=== PATIENT | male | born 1955 | race Caucasian/White ===

== ENCOUNTER 2017-07-23 10:05 | Inpatient (IN) | payer OTHER ==
[2017-07-23] MEDS ORDERED: ATORVASTATIN 80 MG TAB PO STA (10:13)
[2017-07-23] MEDS ORDERED: SODIUM CHLORIDE 0.9% 500 ML IV ONE (10:18)
[2017-07-23] MEDS ORDERED: fentaNYL (PF) 50 MCG/ML 2 ML AMP ONE (10:32)
[2017-07-23] MEDS ORDERED: fentaNYL (PF) 50 MCG/ML 2 ML AMP IV ONE (10:32)
[2017-07-23] MEDS ORDERED: LIDOCAINE 2% INJ 20 MG/ML SQ ONE (10:32)
--- NOTE | 2017-07-23 10:32 | ED ---
Chest Pain HPI - General Chief Complaint: Chest Pain Stated Complaint: Stemi Time Seen by Provider: 07/23/17 10:05 Source: patient, police, EMS, RN notes reviewed Mode of arrival: EMS Limitations: no limitations - History of Present Illness Initial Comments: This is a 61-year-old male with a benign past medical history but a family history of hypertension who is a nonsmoker with the onset this morning at about 745 of retrosternal chest pain it was about 7/10 severity. It persisted he did have plans radiation no sweats no nausea vomiting possibly some shortness of breath. He's had intermittent symptoms similar to this over the past several weeks with exertion and so showing. He states he had a complete cardiac workup about 10 years ago that was negative. He had no fevers chills cough phlegm production or other symptoms. EMS was called patient was given aspirin and nitroglycerin with very minimal resolution of the pain. EKGs done by paramedics revealed ST elevation in leads II, III, and F aVF with reciprocal ST depressions in aVL and some borderline depression in lead 1. He was transported to the hospital here a STEMI alert was called I did contact Dr. Voss patient was about 30 minutes out. The Order Picker was called and. Complaint: chest pain - Related Data Home Medications Medication Instructions Recorded Confirmed No Known Home Medications [No 07/23/17 07/23/17 Known Home Medications] Allergies Allergy/AdvReac Type Severity Reaction Status Date / Time No Known Allergies Allergy Verified 07/23/17 10:14 Review of Systems ROS Statement: Those systems with pertinent positive or pertinent negative responses have been documented in the HPI. ROS Other: All systems not noted in ROS Statement are negative. EKG Findings - EKG Results: EKG: interpreted by ERMD, sinus rhythm (EKG showed a sinus rhythm with a rate of 86 [place] interval 186 QRS duration 100 QT since QTC 322/[address] elevations in leads II, III, and F aVF with reciprocal ST depressions in aVL and leads [address] changes seen in leads V5 and the 6. The V5 V6 leads are somewhat change from the 1 presented by EMS.) Past Medical History Past Medical History: No Reported History History of Any Multi-Drug Resistant Organisms: None Reported Past Surgical History: No Surgical Hx Reported Past Psychological History: No Psychological Hx Reported Smoking Status: Never smoker General Exam - General Exam Comments Initial Comments: This is a well-developed well-nourished awake alert oriented 3 male Limitations: no limitations General appearance: alert, anxious Head exam: Present: atraumatic, normocephalic, normal inspection Eye exam: Present: normal appearance, PERRL, EOMI. Absent: scleral icterus, conjunctival injection, periorbital swelling ENT exam: Present: normal exam, mucous membranes moist Neck exam: Present: normal inspection. Absent: tenderness, meningismus, lymphadenopathy Respiratory exam: Present: normal lung sounds bilaterally. Absent: respiratory distress, wheezes, rales, rhonchi, stridor Cardiovascular Exam: Present: regular rate, normal rhythm, normal heart sounds. Absent: systolic murmur, diastolic murmur, rubs, gallop, clicks GI/Abdominal exam: Present: soft, normal bowel sounds. Absent: distended, tenderness, guarding, rebound, rigid Extremities exam: Present: normal inspection, full ROM, normal capillary refill. Absent: tenderness, pedal edema, joint swelling, calf tenderness Back exam: Present: normal inspection Neurological exam: Present: alert, oriented X3, CN II-XII intact Psychiatric exam: Present: normal affect, normal mood Skin exam: Present: warm, dry, intact, normal color. Absent: rash Course Vital Signs 07/23/17 10:06 Pulse Rate 89 Respiratory 18 Rate Blood Pressure 192/113 O2 Sat by Pulse 99 Oximetry Chest Pain MDM - MDM Dr. Voss arrived in the emergency department shortly after the patient arrived. He did examine the patient patient will be going to the Order P[facility] for cardiac catheterization. I did review the x-ray no acute findings. I did discuss the findings with the patient and with his was present. I also discussed the case with Dr. Peña who is on [facility] [place] [facility] call for medicine. The patient persists in having 6/10 chest pain this was after the aspirin nitroglycerin he was given morphine and route. Critical Care Time Critical Care Time: Yes Critical Care Time: 34 minutes of critical care time which includes monitoring the EMS run and discussed with paramedics prior to arrival history physical lab and x-ray orders on the patient several discussions with the patient has regarding findings discussed with paramedics. Discussion with Dr. Voss and with Dr. Peña. A shot of the above. Disposition Clinical Impression: ST elevation myocardial infarction (STEMI), Chest pain Disposition: ADMITTED IP TO THIS [facility] Condition: Serious Referrals: Davin Martinez MD [Primary Care Provider] - 1 Week
[2017-07-23] MEDS ORDERED: VERAPAMIL SYRINGE (5 MG/10 ML) INTRAARTER ONE (10:34)
--- NOTE | 2017-07-23 10:37 | XR ---
EXAMINATION TYPE: XR chest 1V portable DATE OF EXAM: 07/23/2017 HISTORY: Chest Pain. REFERENCE: NONE. FINDINGS: The heart is upper limits of normal in size. There is left basilar airspace disease. There is a left-sided effusion. Catheter tubing projects over the right chest. IMPRESSION: 1. CARDIOMEGALY. 2. LEFT BASILAR AIRSPACE DISEASE. 3. SMALL LEFT EFFUSION.
[2017-07-23] MEDS ORDERED: BIVALIRUDIN BOLUS 250 MG/50 ML IV ONE (10:38)
[2017-07-23] MEDS ORDERED: PRASUGREL 10 MG TAB ONE (10:39)
[2017-07-23] MEDS ORDERED: BIVALIRUDIN 250 MG in SODIUM CHLORIDE 0.9% 50 ML IV ONE (10:39)
[2017-07-23] MEDS ORDERED: PRASUGREL 10 MG TAB PO ONE (10:41)
[2017-07-23] MEDS ORDERED: SODIUM CHLORIDE 0.9% 1,000 ML IV SCH ×2 (10:45→11:30)
[2017-07-23] MEDS ORDERED: NITROGLYCERIN 1000MCG/10ML SYRINGE INTRACORON ONE (10:49)
[2017-07-23] MEDS ORDERED: IOHEXOL 350 MG/ML 125ML BOTTLE INJ ONE (11:06)
--- NOTE | 2017-07-23 11:09 | CONS ---
CONSULTATION Mr. Andujar is a 61-year-old male with no prior documented history of coronary artery disease who presented to the emergency room through EMS with an acute episode of chest discomfort that woke him up from sleep. The patient had evidence of acute inferior myocardial infarction. The patient is active physically, plays volleyball 3 times a week without associated symptoms. Denies any exertional chest pain. No tightness in the chest. No dizziness. No palpitation. No syncope. No PND, orthopnea, or peripheral edema. His coronary risk factors are negative for hypertension. He is nonsmoker, nondiabetic, and no documented hyperlipidemia. REVIEW OF SYSTEMS: RESPIRATORY SYSTEM: No recent wheezing. No cough. No history of documented obstructive lung disease. GI SYSTEM: No recent GI bleeding. No peptic ulcer disease. SYSTEM: No dysuria or hematuria. NERVOUS SYSTEM: No stroke or seizure. PHYSICAL EXAMINATION: A 61-year-old male, alert, oriented in no apparent distress. Blood pressure 130/70 with the heart rate in the 70s. HEAD: Normocephalic. EYES: Sclerae anicteric. NECK: Good carotid upstroke. No bruit. No jugular venous distention. LUNGS: Clear to auscultation. HEART: Regular rate and rhythm S1, S2. No S3. No rub. ABDOMEN: Soft, nontender. Positive bowel sounds. No organomegaly. EXTREMITIES: No edema. Intact distal pulses. EKG is consistent with sinus mechanism and ST-segment elevation consistent with an inferior wall myocardial infarction. IMPRESSION: Acute inferior myocardial infarction. RECOMMENDATION: I recommend proceeding with emergent cardiac catheterization to assess his status and guide his treatment. The rationale behind the procedure as well as risks and the complications were discussed with the patient who is in full understanding and agreement. Thank you for this consult. We will follow with you. MMODL / IJN: [id number] /
[2017-07-23 11:16] LABS: Basophils # (A) 0.1 k/uL (0-0.2); Basophils % (A) 1 %; Eosinophils # (A) 0.1 k/uL (0-0.7); Eosinophils % (A) 0 %; HCT 45.1 % (39.0-53.0); HGB 14.9 gm/dL (13.0-17.5); Lymphocytes # (A) 1.1 k/uL (1.0-4.8); Lymphocytes % (A) 10 %; MCH 29.6 pg (25.0-35.0); MCV 89.7 fL (80.0-100.0); Mean Platelet Volume 8.3; Monocytes # (A) 0.3 k/uL (0-1.0); Monocytes % (A) 3 %; Neutrophils % (A) 86 %; Platelet Count 258 k/uL (150-450); RBC 5.03 m/uL (4.30-5.90); RDW 13.9 % (11.5-15.5); WBC 11.6 k/uL (3.8-10.6)
[2017-07-23] MEDS ORDERED: ZOLPIDEM 5 MG TAB PO PRN (11:27)
[2017-07-23] MEDS ORDERED: MAG HYDROX/AL HYDROX/SIMETH 30 ML CUP PO PRN (11:27)
[2017-07-23] MEDS ORDERED: NITROGLYCERIN SL TABS 0.4 MG TAB SUBLINGUAL PRN (11:27)
[2017-07-23] MEDS ORDERED: RX INFO: IV CONTRAST WAS GIVEN 1 EACH MISC MISCELLANE PRN (11:27)
[2017-07-23] MEDS ORDERED: ATROPINE SULFATE 0.1 MG/ML 10ML SYRINGE IV PRN (11:27)
[2017-07-23 11:29] LABS: ALT 74 U/L (21-72); AST 121 U/L (17-59); Albumin 3.7 g/dL (3.5-5.0); Alkaline Phosphatase 84 U/L (38-126); Anion Gap 9 mmol/L; Blood Urea Nitrogen 15 mg/dL (9-20); Calcium 8.7 mg/dL (8.4-10.2); Carbon Dioxide 23 mmol/L (22-30); Chloride 104 mmol/L (98-107); Glucose 143 mg/dL (74-99); Magnesium 2.1 mg/dL (1.6-2.3); Potassium 4.7 mmol/L (3.5-5.1); Sodium 136 mmol/L (137-145); Total Bilirubin 0.6 mg/dL (0.2-1.3); Total Protein 6.4 g/dL (6.3-8.2)
[2017-07-23 11:41] LABS: INR 3.9 (<1.2); Partial Thromboplastin Time 77.7 sec (22.0-30.0); Prothrombin Time 34.6 sec (9.0-12.0)
[2017-07-23 11:50] LABS: Glucose,Whole Blood 116 mg/dL (75-99)
[2017-07-23 12:04] LABS: Creatine Kinase MB 42.7 ng/mL (0.0-2.4); Troponin I 8.37 ng/mL (0.000-0.034)
[2017-07-23 12:25] VITALS: BMI 25.1
--- NOTE | 2017-07-23 13:03 | CC ---
CARDIAC CATHETERIZATION REPORT Mr. Andujar is a 61-year-old male with no significant cardiac disease who presented to the emergency room with an acute episode of chest discomfort with ST-segment elevation inferiorly. In view of that, recommendation was made regarding cardiac catheterization. The procedure as well as the risks and complications were discussed with the patient who is in full understanding and agreement. PROCEDURE: Patient was brought to the laboratory sample carrier in a fasting semi-sedated state after receiving fentanyl and Benadryl and achieving moderate conscious sedated state. Using Xylocaine anesthesia in the Seldinger technique, a 6-Croatian sheath was introduced in the right radial artery. Selective right and left coronary angiography performed using 6-Croatian FR4 guiding catheter and a 5-Croatian 3.5 bend left Edgardo catheter. After obtaining images of the right coronary artery and performing angioplasty and stenting, images of the left coronary system was performed. Following that 5-Croatian tight pigtail catheter was left ventricle and a 30-degree WEEMS view of the left ventricle was obtained. Following that, the catheter and sheaths were removed. Hemostasis was obtained with deployment of a TR band. There was no immediate complication. Patient is returned to his room in stable condition. There was no immediate complication. FINDINGS: LEFT MAIN: This is a short size vessel bifurcating in left circumflex and left anterior descending artery. Left main coronary artery is without any significant obstructive disease. LEFT ANTERIOR DESCENDING ARTERY: This is a large-sized vessel reaching to the apex giving rise to 3 diagonal branches. The first one is very proximal. The second one is small in caliber, but has diffuse intimal disease proximally up to 70%. After the takeoff of that diagonal branch, there is a plaque in the LAD of 50% to 60%. Beyond that, there is no high-grade stenosis except at the distal apical segment when there is an area of stenosis of about 70%. LEFT CIRCUMFLEX: This is a nondominant vessel giving rise to a large obtuse marginal branch. In the proximal segment of the left circumflex, there is a plaque with area of stenosis up to 70%. The rest of the vessel has no high-grade stenosis. RIGHT CORONARY ARTERY: This is a dominant vessel, tortuous in mid segment and has a plaque of about 30% to 40%. After the takeoff of the acute marginal branch, the vessel is totally occluded with no antegrade flow. LEFT VENTRICULOGRAM: Left ventriculogram is performed in 30-degree WEEMS view and revealed mid inferior wall hypokinesis with ejection fraction of 45% to 50%. There was no significant mitral regurgitation. HEMODYNAMICS: There was no gradient across the aortic valve. The left ventricle end- diastolic pressure was 24 mmHg. CONCLUSION: 1. Acutely occluded mid right coronary artery. 2. Significant disease in the proximal left circumflex and moderate significant disease in the mid left anterior descending artery. 3. Mildly impaired left ventricular systolic function. RECOMMENDATION: The patient will undergo angioplasty and stenting of the right coronary artery and subsequently be evaluated for the need to undergo revascularization of his LAD and left circumflex. Those findings and recommendation were discussed with the patient who is in full understanding and agreement. MMODL / IJN: [id number] /
--- NOTE | 2017-07-23 13:09 | PTCA ---
PERCUTANEOUSTRANS CORORONARY ANGIOGRAPHY Mr. Andujar is a 61-year-old male with no significant coronary risk factors who presented to the hospital with an acute inferior myocardial infarction, underwent cardiac catheterization, was found to have a totally occluded mid right coronary artery. In view of that, recommendation was made regarding angioplasty and stenting. The procedure as well as the risks and complications were discussed with the patient who is in full understanding and agreement. PROCEDURE: Using the 6-[place] Zealander FR4 guiding catheter and after obtaining images of the right coronary artery, 0.014 balanced medium weight J-wire was advanced across the lesion, positioned distally. Then a 2.5 x 12 mm Trek balloon was advanced and 2 inflations maximum of 8 atmospheres were done. Following that, the balloon was removed and a 2.75 x 18 mm Xience Alpine stent was deployed postdilated at 14 atmospheres. After removing the balloon, a 2.75 x 12 mm Xience Alpine stent was deployed proximal to the first one and postdilated to 16 atmospheres. After the last images after appropriate wait, the balloon and the guidewire were withdrawn back in the guiding catheter. Images were obtained, repeated. Those images reveal stable successful stenting. At that point, the guiding catheter, the balloon and the guidewire were removed. Subsequently, images of the left coronary system and left ventriculogram was performed. Following the catheter and sheaths were removed. Hemostasis was obtained with deployment of a TR band. There was no immediate complication. Patient is returned to his room in stable condition. Of note, the patient received Angiomax per protocol as well as oral loading doses of Effient. He received intra-arterial verapamil. His chest discomfort resolved and his EKG changes improved. RESULTS: Successful stenting of the mid right coronary artery with reduction of stenosis from 100% to 0%. RECOMMENDATION: The patient will be continued on aspirin, Effient, beta verna, NIEVES inhibitor and statin. The importance of dual antiplatelet treatment were discussed with the patient and his family and are in full understanding and agreement. The patient will require re-evaluation regarding the need to undergo revascularization of his left coronary system. Duration of procedure: 39 minutes. MMODL / IJN: [id number] /
--- NOTE | 2017-07-23 13:24 | HP ---
CONSULTATION SUBJECTIVE: A 61-year-old white male who is status post STEMI, status post PTCA of the right coronary artery x2 up in ICU after a STEMI watching him on the monitor. We placed him on Lipitor 80 mg daily, Lopressor 25 b.i.d., Zestril 5 mg b.i.d., aspirin 81 mg daily, Effient 10 mg daily. He is having no chest pain, shortness of breath, talking normally postop. Home medicines are none. FAMILY HISTORY: Dad had a stroke x3 in his 80s. SURGICAL HISTORY: As mentioned, he status post PTCA, otherwise negative. PAST MEDICAL HISTORY: Negative. He is on no medications. He has never smoked, does drink alcohol. PHYSICAL EXAMINATION: A white male, he is within normal limits, talking normally. No complaints. CARDIOVASCULAR: S1, S2. LUNGS: Clear. GI: Soft. HEMATOLOGY: Negative Homans. PSYCH: Fair mood and affect. OPHTHALMOLOGIC: Pupils equal, round, react to light and accommodation. NEUROLOGIC: Alert and oriented x3. PSYCH: Fair mood and affect. VASCULAR: Normal dorsalis pedis, posterior tibial and radial pulse. Blood pressure currently is 150/90, down from admission. Pulse is in 80s. Respiratory rate 18. ASSESSMENT: 1. Status post PTCA. 2. ST-elevation myocardial infarction. He will be on medications as mentioned above. Possible discharge in next 2 to 3 days. Monitor on the monitor. Status post STEMI, status post stent placement. MMODL / IJN: [id number] /
[2017-07-23] MEDS: METOPROLOL TARTRATE 25 MG TAB PO SCH ×2 (13:46→20:13)
[2017-07-23] MEDS ORDERED: HYDROmorphone 0.5 MG/0.5 ML SYRINGE IVP STA (15:02)
[2017-07-23] MEDS ORDERED: LISINOPRIL 5 MG TAB PO STA (15:02)
[2017-07-23] MEDS: FAMOTIDINE 20 MG TAB PO SCH (18:26)
[2017-07-23 18:45] LABS: Hemoglobin A1C 5.8 % (4.0-6.0)
[2017-07-23 18:52] LABS: Troponin I 96.4 ng/mL (0.000-0.034)
[2017-07-23] MEDS: LISINOPRIL 5 MG TAB PO SCH (20:13)
[2017-07-24 00:42] LABS: Creatine Kinase MB 86.2 ng/mL (0.0-2.4)
[2017-07-24 01:21] LABS: Troponin I 86.3 ng/mL (0.000-0.034)
[2017-07-24] MEDS: NITROGLYCERIN SL TABS 0.4 MG TAB SUBLINGUAL PRN ×3 (04:05→04:22)
[2017-07-24 04:46] LABS: Basophils # (A) 0.1 k/uL (0-0.2); Basophils % (A) 0 %; Eosinophils # (A) 0.1 k/uL (0-0.7); Eosinophils % (A) 1 %; HCT 44.3 % (39.0-53.0); HGB 14.7 gm/dL (13.0-17.5); Lymphocytes % (A) 16 %; MCH 30.1 pg (25.0-35.0); MCHC 33.2 g/dL (31.0-37.0); MCV 90.8 fL (80.0-100.0); Mean Platelet Volume 8.4; Monocytes # (A) 0.6 k/uL (0-1.0); Monocytes % (A) 5 %; Neutrophils # (A) 9.4 k/uL (1.3-7.7); Neutrophils % (A) 77 %; Platelet Count 274 k/uL (150-450); RBC 4.88 m/uL (4.30-5.90); RDW 14.4 % (11.5-15.5); WBC 12.3 k/uL (3.8-10.6)
[2017-07-24 04:57] LABS: ALT 96 U/L (21-72); AST 243 U/L (17-59); Albumin 3.6 g/dL (3.5-5.0); Alkaline Phosphatase 72 U/L (38-126); Anion Gap 8 mmol/L; Blood Urea Nitrogen 13 mg/dL (9-20); Calcium 9.2 mg/dL (8.4-10.2); Carbon Dioxide 25 mmol/L (22-30); Chloride 101 mmol/L (98-107); Cholesterol 98 mg/dL (<200); Glucose 127 mg/dL (74-99); HDL Cholesterol 35 mg/dL (40-60); LDL Cholesterol,Calculated 49 mg/dL (0-99); Potassium 4.5 mmol/L (3.5-5.1); Sodium 134 mmol/L (137-145); Total Bilirubin 1.1 mg/dL (0.2-1.3); Triglycerides 72 mg/dL (<150)
[2017-07-24] MEDS ORDERED: MORPHINE SULFATE 2 MG/ML SYRINGE IVP PRN ×2 (08:02)
[2017-07-24] MEDS: FAMOTIDINE 20 MG TAB PO SCH (08:30)
[2017-07-24] MEDS: ASPIRIN 81 MG PO SCH (08:30)
[2017-07-24] MEDS: LISINOPRIL 5 MG TAB PO SCH ×2 (08:31→20:25)
[2017-07-24] MEDS: METOPROLOL TARTRATE 25 MG TAB PO SCH ×2 (08:31→20:25)
[2017-07-24] MEDS: PRASUGREL 10 MG TAB PO SCH (08:31)
--- NOTE | 2017-07-24 08:52 | PN ---
PROGRESS NOTE Mr. Andujar is a 61-year-old male who presents with an acute inferior myocardial infarction underwent percutaneous revascularization of his right coronary artery. He is doing well this morning. His breathing has been stable. He denies any symptoms of chest pain. He denies any dizziness or palpitations. He has had some discomfort in the chest respirophasic but no symptoms similar to what he had on presentation. He continues to be at this time on aspirin once a day, Lipitor 80 mg daily, lisinopril 5 mg twice a day, metoprolol tartrate 25 mg twice a day, and Effient 10 mg daily. PHYSICAL EXAMINATION: Blood pressure 111/60 with a heart rate in the 60s. LUNGS: Clear. Regular rhythm S1, S2. No S3. No rub. ABDOMEN: Soft, nontender. EXTREMITIES: No edema. Right radial pulse is intact. LAB DATA: BUN and creatinine 13 and 1.0, hemoglobin 14.7. His peak troponin is 96. EKG is consistent with inferior myocardial infarction. IMPRESSION: 1. Status post acute myocardial infarction with stenting of the right coronary artery. 2. Significant disease in the left circumflex with moderate to significant disease in the LAD. RECOMMENDATION: The plan is to transfer him today to telemetry floor. Increase physical activity. I reviewed the results of his echocardiogram. Depending on his progress, further recommendations will be made regarding the timing to proceed with percutaneous revascularization of his left circumflex and reevaluation of his LAD. MANFRED / TEN: [id number] /
[2017-07-24] MEDS ORDERED: ASPIRIN 325 MG TAB PO SCH (09:00)
--- NOTE | 2017-07-24 18:49 | PN ---
PROGRESS NOTE SUBJECTIVE: 61-year-old male with acute inferior myocardial infarction, underwent PTCA of the right coronary artery, is doing well. Is breathing good. Low HDL was discussed with him and natural treatments for it. Blood pressure is 110s over 60s, heart rate in the 60s. Lungs are clear. Abdomen is soft. Psych: Fair mood and affect. Creatinine 1.0. Hemoglobin is 14.7. Troponin 0.96. EKG, inferior IN, status post inferior IN, stenting of the right coronary artery, significant disease left circumflex, moderate to significant disease in LAD. Possibly more PTCAs depending on patient's improvement will be done. Please see further orders. ICU 20 minutes. MMODL / IJN: [id number] /
[2017-07-24] MEDS: ATORVASTATIN 80 MG TAB PO SCH (20:25)
[2017-07-25 06:25] LABS: ALT 76 U/L (21-72); AST 126 U/L (17-59); Albumin 3.7 g/dL (3.5-5.0); Alkaline Phosphatase 74 U/L (38-126); Anion Gap 8 mmol/L; Blood Urea Nitrogen 18 mg/dL (9-20); Calcium 9.6 mg/dL (8.4-10.2); Carbon Dioxide 27 mmol/L (22-30); Chloride 106 mmol/L (98-107); Glucose 110 mg/dL (74-99); Potassium 4.6 mmol/L (3.5-5.1); Sodium 141 mmol/L (137-145); Total Protein 6.2 g/dL (6.3-8.2)
[2017-07-25] MEDS: FAMOTIDINE 20 MG TAB PO SCH (08:29)
[2017-07-25] MEDS: PRASUGREL 10 MG TAB PO SCH (08:29)
[2017-07-25] MEDS: LISINOPRIL 5 MG TAB PO SCH ×2 (08:29→22:10)
[2017-07-25] MEDS: METOPROLOL TARTRATE 25 MG TAB PO SCH ×2 (08:30→22:10)
[2017-07-25] MEDS: ASPIRIN 81 MG PO SCH (08:30)
[2017-07-25] MEDS ORDERED: ALPRAZolam 0.5 MG TAB PO PRN (09:49)
[2017-07-25] MEDS ORDERED: ASPIRIN 325 MG TAB PO STA (09:49)
[2017-07-25] MEDS ORDERED: ALPRAZolam 0.25 MG TAB PO PRN (09:49)
[2017-07-25] MEDS ORDERED: ATORVASTATIN 80 MG TAB PO STA (09:49)
[2017-07-25] MEDS ORDERED: SODIUM CHLORIDE 0.9% 1,000 ML in EMPTY BAG 1 BAG IV ONE (09:49)
[2017-07-25] MEDS ORDERED: NITROGLYCERIN SL TABS 0.4 MG TAB SUBLINGUAL PRN (09:49)
--- NOTE | 2017-07-25 09:52 | ECHOF ---
Referral Reason:la MEASUREMENTS -------- HEIGHT: 180.3 cm WEIGHT: 83.5 kg BP: 104/60 RVIDd: 3.3 cm (< 3.3) IVSd: 1.5 cm (0.6 - 1.1) LVIDd: 3.1 cm (3.9 - 5.3) LVPWd: 1.3 cm (0.6 - 1.1) IVSs: 1.8 cm LVIDs: 2.4 cm LVPWs: 1.8 cm LA Diam: 2.7 cm (2.7 - 3.8) LAESV Index (A-L): 13.96 ml/m Ao Diam: 3.2 cm (2.0 - 3.7) AV Cusp: 2.3 cm (1.5 - 2.6) MV EXCURSION: 18.894 mm (> 18.000) MV EF SLOPE: 147 mm/s (70 - 150) EPSS: 0.2 cm MV E Martin: 0.84 m/s MV DecT: 214 ms MV A Martin: 0.93 m/s MV E/A Ratio: 0.90 FINDINGS -------- Sinus rhythm. This was a technically good study. The left ventricular size is normal. There is moderate concentric left ventricular hypertrophy. O verall left ventricular systolic function is mildly impaired with, an EF between 45 - 50 %. Basal i nferior LV wall motion is hypokinetic. Basal inferoseptal LV wall motion is hypokinetic. The right ventricle is mildly enlarged. The right ventricular systolic function is moderately impai red. Normal LA size by volume 22+/-6 ml/m2. The right atrium is normal in size. The aortic valve is trileaflet and appears structurally normal. There is trace mitral regurgitation. The tricuspid valve appears structurally normal. There is no pulmonic regurgitation present. The aortic root size is normal. IVC Not well visulized. There is no pericardial effusion. CONCLUSIONS -------- 1. Sinus rhythm. 2. This was a technically good study. 3. The left ventricular size is normal. 4. There is moderate concentric left ventricular hypertrophy. 5. Overall left ventricular systolic function is mildly impaired with, an EF between 45 - 50 %. 6. Basal inferior LV wall motion is hypokinetic. 7. Basal inferoseptal LV wall motion is hypokinetic. 8. The right ventricle is mildly enlarged. 9. The right ventricular systolic function is moderately impaired. 10. Normal LA size by volume 22+/-6 ml/m2. 11. The right atrium is normal in size. 12. The aortic valve is trileaflet and appears structurally normal. 13. There is trace mitral regurgitation. 14. The tricuspid valve appears structurally normal. 15. There is no pulmonic regurgitation present. 16. The aortic root size is normal. 17. IVC Not well visulized. 18. There is no pericardial effusion. RV TECHNICIAN: Jeni Saldana RDCS
--- NOTE | 2017-07-25 10:29 | PN ---
PROGRESS NOTE Mr. Andujar is a 61-year-old male who presented with an acute myocardial infarction in the right coronary artery, underwent stenting of his right coronary artery. He was found to have significant obstructive disease in the circumflex and moderate significant disease in the LAD. He is doing well this morning. He denies symptoms of chest pain. His breathing seems to be stable. He denies any dizziness or palpitation. No nausea. No vomiting. No cough. No fever. He continued be on aspirin once a day, Lipitor 80 mg daily, lisinopril 5 mg twice a day, metoprolol tartrate 25 mg twice a day, and Effient 10 mg daily. PHYSICAL EXAMINATION: Blood pressure 104/60 with the heart rate in 70s. LUNGS: Clear. HEART: Regular rate and rhythm. S1, S2. No S3. No rub. ABDOMEN: Soft, nontender. EXTREMITIES: No edema. LAB DATA: Lab data revealed BUN and creatinine of 18 and 1.2. Potassium 4.6. His AST is 126, ALT is 76. IMPRESSION: 1. Status post inferior wall myocardial infarction with stenting. 2. Disease in the left anterior descending artery and the right coronary artery. 3. Hyperlipidemia. RECOMMENDATION: Patient will be transferred to telemetry floor. He will proceed with percutaneous revascularization of his left circumflex and re-evaluation of the LAD on Tuesday. Depending on his progress, further recommendation will be made. MMODL / IJN: [id number] /
[2017-07-25 18:54] LABS: Hepatitis A Antibody IgM Non-Reactive (Non-Reactive); Hepatitis B Core IgM Non-Reactive (Non-Reactive)
[2017-07-25] MEDS: ATORVASTATIN 80 MG TAB PO SCH (22:10)
--- NOTE | 2017-07-25 23:23 | PN ---
PROGRESS NOTE SUBJECTIVE: 61-year-old white male, status post myocardial infarction ejection fraction 45-50%. He is scheduled to have right catheterization of the LAD and right circumflex on Tuesday. Remains on aspirin, Lipitor, lisinopril, metoprolol, Effient. Blood pressure low 100s over 60s, heart rate in the 70s. Lungs are clear. Heart S1, S2. No murmurs, rubs or gallops. Abdomen is soft, nontender. EXTREMITIES: No cyanosis, clubbing, edema. BUN of 18, creatinine 1.2, potassium 4.6. AST is 126, ALT 76. ASSESSMENT: 1. Status post inferior myocardial infarction with stenting of LAD and right coronary artery free stent. 2. Coronary artery disease. 3. Dyslipidemia with low HDL. Risk factor modification. Continue current treatment. Heart catheterization in 1-2 days. MMODL / IJN: [id number] /
[2017-07-26] MEDS: LISINOPRIL 5 MG TAB PO SCH ×2 (08:02→21:52)
[2017-07-26] MEDS: ASPIRIN 81 MG PO SCH (08:02)
[2017-07-26] MEDS: PRASUGREL 10 MG TAB PO SCH (08:02)
[2017-07-26] MEDS: METOPROLOL TARTRATE 25 MG TAB PO SCH ×2 (08:03→21:51)
[2017-07-26] MEDS: FAMOTIDINE 20 MG TAB PO SCH (08:03)
[2017-07-26] MEDS: ACETAMINOPHEN TAB 325 MG TAB PO PRN (10:17)
--- NOTE | 2017-07-26 12:51 | PN ---
PROGRESS NOTE Mr. Andujar is a 61-year-old male who presented with an acute myocardial infarction, underwent stenting of the right coronary artery, was found to have significant disease involving the circumflex and moderate significant disease in the LAD. He is doing well this morning. Ambulating without any difficulty. Denying any symptoms of chest pain. No dizziness. No palpitation. He continued on aspirin once a day, Lipitor 80 mg daily, lisinopril 5 mg twice a day, metoprolol tartrate 25 mg twice a day, and Effient 10 mg daily. PHYSICAL EXAMINATION: Blood pressure 115/60 with a heart rate in the 70s. LUNGS: Clear. HEART: Regular rate and rhythm. S1, S2. No S3. No rub. ABDOMEN: Soft, nontender. EXTREMITIES: No edema. LAB DATA: Revealed BUN and creatinine of 18 and 1.2. IMPRESSION: 1. Status post inferior myocardial infarction with stenting of the right coronary artery. 2. Significant disease involving the left circumflex and moderate significant disease in the left anterior descending artery. RECOMMENDATION: Patient will undergo percutaneous revascularization left circumflex tomorrow and re- evaluation of his LAD. In the meantime, will continue on the present medical regimen. MMODL / IJN: [id number] /
[2017-07-26] MEDS: ATORVASTATIN 80 MG TAB PO SCH (21:51)
[2017-07-27] MEDS ORDERED: SODIUM CHLORIDE 0.9% 1,000 ML in EMPTY BAG 1 BAG IV ONE (05:00)
[2017-07-27 06:17] LABS: Basophils # (A) 0.1 k/uL (0-0.2); Basophils % (A) 1 %; Eosinophils # (A) 0.2 k/uL (0-0.7); Eosinophils % (A) 3 %; HCT 45.1 % (39.0-53.0); HGB 14.7 gm/dL (13.0-17.5); Lymphocytes # (A) 2.3 k/uL (1.0-4.8); Lymphocytes % (A) 31 %; MCH 29.4 pg (25.0-35.0); MCHC 32.6 g/dL (31.0-37.0); MCV 90.3 fL (80.0-100.0); Mean Platelet Volume 8.9; Monocytes # (A) 0.5 k/uL (0-1.0); Monocytes % (A) 7 %; Neutrophils # (A) 4.2 k/uL (1.3-7.7); Neutrophils % (A) 56 %; Platelet Count 274 k/uL (150-450); RDW 13.9 % (11.5-15.5); WBC 7.5 k/uL (3.8-10.6)
[2017-07-27] MEDS ORDERED: ASPIRIN 325 MG TAB PO STA (06:29)
[2017-07-27] MEDS: ASPIRIN 81 MG PO SCH (06:29)
[2017-07-27] MEDS: PRASUGREL 10 MG TAB PO SCH (06:30)
[2017-07-27] MEDS: METOPROLOL TARTRATE 25 MG TAB PO SCH ×2 (06:30→21:07)
[2017-07-27] MEDS: FAMOTIDINE 20 MG TAB PO SCH (06:30)
[2017-07-27 06:33] LABS: Anion Gap 10 mmol/L; Blood Urea Nitrogen 18 mg/dL (9-20); Calcium 9.4 mg/dL (8.4-10.2); Carbon Dioxide 25 mmol/L (22-30); Chloride 105 mmol/L (98-107); Glucose 119 mg/dL (74-99); Potassium 4.6 mmol/L (3.5-5.1); Sodium 140 mmol/L (137-145)
[2017-07-27] MEDS ORDERED: LIDOCAINE 2% INJ 20 MG/ML (20 ML MDV) ONE (09:54)
[2017-07-27] MEDS ORDERED: diphenhydrAMINE 50 MG/ML 1 ML VIAL ONE (10:21)
[2017-07-27] MEDS ORDERED: fentaNYL (PF) 50 MCG/ML 2 ML AMP ONE (10:21)
[2017-07-27] MEDS ORDERED: fentaNYL (PF) 50 MCG/ML 2 ML AMP IV ONE (10:40)
[2017-07-27] MEDS ORDERED: diphenhydrAMINE 50 MG/ML 1 ML VIAL IVP ONE (10:40)
[2017-07-27] MEDS ORDERED: IV FLUID CONTINUATION 150 ML IV ONE (10:40)
[2017-07-27] MEDS ORDERED: LIDOCAINE 2% INJ 20 MG/ML SQ ONE (10:43)
[2017-07-27] MEDS ORDERED: BIVALIRUDIN 250 MG in SODIUM CHLORIDE 0.9% 35 ML IV ONE (10:48)
[2017-07-27] MEDS ORDERED: BIVALIRUDIN BOLUS 250 MG/50 ML IV ONE (10:49)
[2017-07-27] MEDS: NITROGLYCERIN 1000MCG/10ML SYRINGE INTRACORON ONE ×2 (10:50→10:58)
[2017-07-27] MEDS ORDERED: IOHEXOL 350 MG/ML 125ML BOTTLE INJ ONE (11:17)
[2017-07-27] MEDS ORDERED: RX INFO: IV CONTRAST WAS GIVEN 1 EACH MISC MISCELLANE PRN (11:29)
[2017-07-27] MEDS ORDERED: ZOLPIDEM 5 MG TAB PO PRN (11:29)
[2017-07-27] MEDS ORDERED: ATROPINE SULFATE 0.1 MG/ML 10ML SYRINGE IV PRN (11:29)
[2017-07-27] MEDS ORDERED: NITROGLYCERIN SL TABS 0.4 MG TAB SUBLINGUAL PRN (11:29)
[2017-07-27] MEDS ORDERED: MAG HYDROX/AL HYDROX/SIMETH 30 ML CUP PO PRN (11:29)
[2017-07-27] MEDS ORDERED: SODIUM CHLORIDE 0.9% 1,000 ML IV SCH (11:30)
[2017-07-27] MEDS: LISINOPRIL 5 MG TAB PO SCH ×2 (11:57→21:07)
--- NOTE | 2017-07-27 12:13 | AS ---
ARTERIAL STUDY Mr. Andujar is a 61-year-old male with no prior documented coronary artery disease who presented to the hospital on July 23 with an acute inferior myocardial infarction, underwent stenting of his right coronary artery. At that time was found to have significant disease involving the LAD and the left circumflex. In view of that, recommendation again were made regarding a staged angioplasty and stenting. The procedures, risks and complication were discussed with the patient who is in full understanding and agreement. PROCEDURE: Patient was brought to [facility] in a fasting semi-sedated state after receiving fentanyl and Benadryl and achieving moderate conscious sedated state. Using Xylocaine anesthesia and Seldinger technique, a 6-Djiboutian sheath was introduced in the right femoral artery. Selective left coronary angiography performed using 6-Djiboutian FL4 guiding catheter and after cannulating the left main, a 0.014 advanced medium weight J- wire was advanced across the lesion. Then a 3.0 x 18 mm Xience Alpine stent was deployed, postdilated at 14 atmospheres. Following that, and after appropriate wait, the balloon and the guidewire were withdrawn back in the guiding catheter. Images were obtained and repeated. Those images reveal stable successful stenting. At that point, the guidewire was withdrawn and advanced into the left circumflex obtuse marginal branch. Attempts to advance a 2.5 x 15 mm Xience Alpine stent were unsuccessful. At that point, the stent was removed and another 0.014 Advanced medium weight J-wire was advanced next to the first one and positioned distally in a gloria fashion. Subsequently, a 2.5 x 12 mm Trek balloon was advanced and one inflation at 10 atmospheres was. Following that, the balloon was removed and a 2.5 x 15 mm Xience Alpine stent was deployed, postdilated at 14 atmospheres. After the last inflation, after appropriate wait, the balloon and the guidewire were withdrawn back in the guiding catheter. Images were obtained and repeated. Those images reveal stable successful stenting. At that point, the guiding catheter, the balloon and guidewire were removed. The sheath was removed. Hemostasis was obtained with deployment of an Angio-Seal. There was no immediate complication. The patient was returned to his room in stable condition. Of note, the patient received Angiomax per protocol. He had no significant chest pain or EKG changes with the inflations. RESULTS: 1. Successful stenting of the proximal LAD with reduction of stenosis from 70% to 0%. 2. Successful stenting of the proximal left circumflex with reduction of stenosis from 90% to 0%. RECOMMENDATION: Patient will be continued on aspirin, Effient, beta blockers symptoms, and statin. The importance of dual antiplatelet treatment was discussed with the patient and his family who are in full understanding and agreement. Duration of the procedure is 33 minutes. MANFRED / TEN: [id number] /
[2017-07-27] MEDS: ACETAMINOPHEN TAB 325 MG TAB PO PRN (15:51)
[2017-07-27] MEDS ORDERED: PANTOPRAZOLE 40 MG TABLET PO STA (21:05)
[2017-07-27] MEDS: ATORVASTATIN 80 MG TAB PO SCH (21:07)
--- NOTE | 2017-07-27 22:31 | PN ---
PROGRESS NOTE SUBJECTIVE: [id number] white male, status post PTCA x2 today, of the LAD and the right circumflex, status post prior PTCA 2 or 3 days prior. He is having no chest pain or shortness of breath. Vital signs are stable. His is here discussed low cholesterol with her, low HDL and dietary changes. CARDIOVASCULAR: S1, S2. Lungs are clear. PSYCH: Fair mood and affect. ASSESSMENT: 1. Status post PTCA STEMI, coronary artery disease. 2. Hypertension. 3. Dyslipidemia. Home medicines were reviewed with the patient. Possible discharge home in the next 24 to 48 hours if cleared by Cardiology. MMODL / IJN: [id number] /
[2017-07-28 06:27] LABS: Anion Gap 9 mmol/L; Blood Urea Nitrogen 17 mg/dL (9-20); Calcium 9.3 mg/dL (8.4-10.2); Carbon Dioxide 27 mmol/L (22-30); Chloride 104 mmol/L (98-107); Glucose 107 mg/dL (74-99); Potassium 4.7 mmol/L (3.5-5.1); Sodium 140 mmol/L (137-145)
[2017-07-28] MEDS: METOPROLOL TARTRATE 25 MG TAB PO SCH (08:05)
[2017-07-28] MEDS: PRASUGREL 10 MG TAB PO SCH (08:05)
[2017-07-28] MEDS: LISINOPRIL 5 MG TAB PO SCH (08:06)
[2017-07-28] MEDS: ASPIRIN 81 MG PO SCH (08:06)
[2017-07-28] MEDS: FAMOTIDINE 20 MG TAB PO SCH (08:06)
[2017-07-28 08:12] VITALS: RESP 18; TEMP 97.6
--- NOTE | 2017-07-28 08:29 | PN ---
PROGRESS NOTE Mr. Andujar is a 61-year-old male who presented with an acute myocardial infarction and underwent stenting of the right coronary artery. On the weekend, he was found to have significant disease in the LAD and the right coronary artery and underwent elective angioplasty of the LAD and left circumflex yesterday. He is doing well this morning. His breathing has been stable. He denies any dizziness palpitation. He denies any nausea. He continues to be on aspirin once a day, Lipitor 80 mg daily, lisinopril 5 mg twice a day, metoprolol tartrate 25 mg twice a day, Effient 10 mg daily. PHYSICAL EXAMINATION: Blood pressure 109/60 with the heart rate in the 60s. LUNGS: Clear. HEART: Regular rate and rhythm, S1, S2. No S3. No rub. ABDOMEN: Soft, nontender. EXTREMITIES: No edema. Right groin, no hematoma. LAB DATA: BUN and creatinine 17 and 1.2. Potassium 4.7. EKG revealed no acute changes. IMPRESSION: 1. Status post stenting of the left anterior descending artery and left circumflex. 2. Status post inferior myocardial infarction and stenting of the right coronary artery. 3. Hyperlipidemia. RECOMMENDATION: Patient should be able to be discharged home today and followed as an outpatient. MMODL / IJN: [id number] /
[2017-07-28 13:49] VITALS: BP 118/63; PULSE 64
--- NOTE | 2017-08-29 00:57 | DS ---
DISCHARGE SUMMARY DISCHARGE MEDICATIONS: 1. Aspirin 81 mg daily. 2. Lipitor 80 mg daily. 3. Zestril 5 mg b.i.d. 4. Lopressor 25 mg b.i.d. 5. Nitroglycerin sublingual p.r.n. 6. Effient 10 mg daily. HISTORY: The patient was admitted secondary to acute myocardial infarction. Underwent stenting of the right coronary artery. He was found to have significant disease of the LAD and right coronary. Underwent more angioplasty of the LAD and left circumflex. Also, was doing well. He was stabilized from a cardiac standpoint. Follow up as an outpatient. DISCHARGE DIAGNOSES: 1. Coronary artery disease status post percutaneous transluminal coronary angioplasty x2. 2. Dyslipidemia. MMODL / IJN: [id number] /
== END 2017-07-28 14:38 | disposition home or self-care (01) | DRG 246 ==
LOC: EC 10:05 → 6ICU 10:24 → 6SEL 07-25 10:32
PROVIDERS: ADMIT Family Medicine; ATTEND Family Medicine
PROC: 4A023N7 Measurement of Cardiac Sampling and Pressure, Left Heart, Percutaneous Approach (ICD-10-PCS; 2017-07-23)
PROC: B2111ZZ Fluoroscopy of Multiple Coronary Arteries using Low Osmolar Contrast (ICD-10-PCS; 2017-07-23)
PROC: B2151ZZ Fluoroscopy of Left Heart using Low Osmolar Contrast (ICD-10-PCS; 2017-07-23)
PROC: 027035Z Dilation of Coronary Artery, One Artery with Two Drug-eluting Intraluminal Devices, Percutaneous Approach (ICD-10-PCS; principal; 2017-07-23 10:30)
PROC: 027135Z Dilation of Coronary Artery, Two Arteries with Two Drug-eluting Intraluminal Devices, Percutaneous Approach (ICD-10-PCS; 2017-07-27 10:00)
DX: I21.11 ST elevation (STEMI) myocardial infarction involving right coronary artery (principal); E78.5 Hyperlipidemia, unspecified; I10 Essential (primary) hypertension; I25.10 Atherosclerotic heart disease of native coronary artery without angina pectoris; Z82.49 Family history of ischemic heart disease and other diseases of the circulatory system
CPT/HCPCS: 71045; 80048; 80053; 80061; 80074; 82550; 82553; 83036; 83735; 84443; 84484; 85025; 85347; 85610; 85730; 93005; 93306; 93458; 99285

== ENCOUNTER 2017-09-24 20:16 | Observation (INO) | payer OTHER ==
[2017-09-24] MEDS ORDERED: ASPIRIN 81 MG PO STA (21:23)
[2017-09-24] MEDS ORDERED: SODIUM CHLORIDE 0.9% 500 ML IV STA (21:23)
--- NOTE | 2017-09-24 21:32 | ED ---
General Adult HPI - General Chief complaint: Anxiety Stated complaint: elevated heart rate; indigestion Time Seen by Provider: 09/24/17 21:17 Source: patient, RN notes reviewed Mode of arrival: ambulatory Limitations: no limitations - History of Present Illness Initial comments: 61-year-old male presents to the emergency department with a chief complaint of shortness of breath and chest burning. He states that he had a heart attack back in July. States he is working on the generator skeletal short of breath still feel anxiety and had some burning in his chest. The burning in his chest is similar to his heart attack. He states he took a Xanax and a nitro he has been starting to feel better. He denies any nausea vomiting or diaphoresis with this. They were concerned about his heart so they thought that he should be seen. There is been no other symptoms and the patient at this time. He states he is starting to feel better and calm down. Patient denies any recent fever, chills, back pain, abdominal pain, nausea vomiting, numbness or tingling, dysuria or hematuria, constipation or diarrhea, headaches or visual changes, or any other current symptoms. - Related Data Previous Rx's Medication Instructions Recorded Aspirin 81 mg PO DAILY #30 chew 07/28/17 Atorvastatin [Lipitor] 80 mg PO HS #30 tab 07/28/17 Lisinopril [Zestril] 5 mg PO BID #30 tab 07/28/17 Metoprolol Tartrate [Lopressor] 25 mg PO BID #60 tab 07/28/17 Nitroglycerin Sl Tabs [Nitrostat] 0.4 mg SUBLINGUAL Q5M PRN #25 tab 07/28/17 Prasugrel [Effient] 10 mg PO DAILY #30 tab 07/28/17 Allergies Allergy/AdvReac Type Severity Reaction Status Date / Time Iodinated Contrast- Oral and Allergy Rash/Hives Verified 09/24/17 20:24 IV Dye Review of Systems ROS Statement: Those systems with pertinent positive or pertinent negative responses have been documented in the HPI. ROS Other: All systems not noted in ROS Statement are negative. Past Medical History Past Medical History: Chest Pain / Angina, Hyperlipidemia, Hypertension, Myocardial Infarction (MS) History of Any Multi-Drug Resistant Organisms: None Reported Past Surgical History: Heart Catheterization With Stent, Tonsillectomy Past Anesthesia/Blood Transfusion Reactions: No Reported Reaction Past Psychological History: No Psychological Hx Reported Smoking Status: Never smoker Past Alcohol Use History: None Reported Past Drug Use History: None Reported - Past Family History Father Family Medical History: CVA/TIA General Exam - General Exam Comments Initial Comments: General: The patient is awake and alert, in no distress, and does not appear acutely ill. Eye: Pupils are equal, round and reactive to light, extra-ocular movements are intact; there is normal conjunctiva bilaterally. No signs of icterus. Ears, nose, mouth and throat: There are moist mucous membranes and no oral lesions. Neck: The neck is supple, there is no tenderness. Cardiovascular: There is a regular rate and rhythm. No murmur, rub or gallop is appreciated. Respiratory: Lungs are clear to auscultation, respirations are non-labored, breath sounds are equal. No wheezes, stridor, rales, or rhonchi. Gastrointestinal: Soft, non-distended, non-tender abdomen without masses or organomegaly noted. There is no rebound or guarding present. No CVA tenderness. Bowel sounds are unremarkable. Back: There is no tenderness to palpation in the midline. There is no obvious deformity. No rashes noted. Musculoskeletal: Normal ROM, no tenderness, There is no pedal edema. There is no calf tenderness or swelling. Sensation intact. Pulses equal bilaterally 2+. Neurological: CN II-XII intact, There are no obvious motor or sensory deficits. Coordination appears grossly intact. Speech is normal. Skin: Skin is warm and dry and no rashes or lesions are noted. Psychiatric: Cooperative, appropriate mood & affect, normal judgment. Limitations: no limitations Course Vital Signs 09/24/17 20:20 Temperature 99.1 F Pulse Rate 73 Respiratory 16 Rate Blood Pressure 154/78 O2 Sat by Pulse 96 Oximetry EKG Findings - EKG Comments: EKG Findings:: normal sinus rhythm 63 bpm, normal axis, no atopy, no S-T depressions or elevations, Medical Decision Making - Medical Decision Making 61-year-old male presents for chest burning shortness of breath with history of MS. This time patient's lab work and EKG has been reviewed. This time we do not see an acute event however we would like to monitor the patient overnight due to his heart history. We discussed this with Dr. Casey laureano take. The patient on previous admission. He is in agreement with this admission. All questions have been answered. - Lab Data Result diagrams: 09/24/17 21:36 09/24/17 21:36 Lab Results 09/24/17 09/24/1718 Range/Units 21:36 21:36 21:36 WBC 11.0 H (3.8-10.6) k/uL RBC 4.80 (4.30-5.90) m/uL Hgb 14.3 (13.0-17.5) gm/dL Hct 41.0 (39.0-53.0) % MCV 85.3 D (80.0-100.0) fL MCH 29.8 (25.0-35.0) pg MCHC 34.9 (31.0-37.0) g/dL RDW 12.5 (11.5-15.5) % Plt Count 229 (150-450) k/uL Neutrophils % 73 % Lymphocytes % 19 % Monocytes % 5 % Eosinophils % 1 % Basophils % 1 % Neutrophils # 8.0 H (1.3-7.7) k/uL Lymphocytes # 2.1 (1.0-4.8) k/uL Monocytes # 0.5 (0-1.0) k/uL Eosinophils # 0.2 (0-0.7) k/uL Basophils # 0.1 (0-0.2) k/uL PT (9.0-12.0) sec INR (<1.2) APTT (22.0-30.0) sec Sodium 135 L (137-145) mmol/L Potassium 4.4 (3.5-5.1) mmol/L Chloride 100 (98-107) mmol/L Carbon Dioxide 23 (22-30) mmol/L Anion Gap 12 mmol/L BUN 18 (9-20) mg/dL Creatinine 0.91 (0.66-1.25) mg/dL Est GFR (CKD-EPI)AfAm >90 (>60 ml/min/1.73 sqM) Est GFR (CKD-EPI)NonAf >90 (>60 ml/min/1.73 sqM) Glucose 105 H (74-99) mg/dL Calcium 9.5 (8.4-10.2) mg/dL Magnesium 2.1 (1.6-2.3) mg/dL Total Bilirubin 1.0 (0.2-1.3) mg/dL AST 45 (17-59) U/L ALT 83 H (21-72) U/L Alkaline Phosphatase 114 (38-126) U/L Total Creatine Kinase 90 (55-170) U/L CK-MB (CK-2) 1.5 (0.0-2.4) ng/mL CK-MB (CK-2) Rel Index 1.7 Troponin I <0.012 (0.000-0.034) ng/mL Total Protein 7.2 (6.3-8.2) g/dL Albumin 4.5 (3.5-5.0) g/dL Amylase 85 (30-110) U/L Lipase 133 (23-300) U/L 09/24/17 Range/Units 21:36 WBC (3.8-10.6) k/uL RBC (4.30-5.90) m/uL Hgb (13.0-17.5) gm/dL Hct (39.0-53.0) % MCV (80.0-100.0) fL MCH (25.0-35.0) pg MCHC (31.0-37.0) g/dL RDW (11.5-15.5) % Plt Count (150-450) k/uL Neutrophils % % Lymphocytes % % Monocytes % % Eosinophils % % Basophils % % Neutrophils # (1.3-7.7) k/uL Lymphocytes # (1.0-4.8) k/uL Monocytes # (0-1.0) k/uL Eosinophils # (0-0.7) k/uL Basophils # (0-0.2) k/uL PT 9.7 (9.0-12.0) sec INR 1.0 (<1.2) APTT 23.4 (22.0-30.0) sec Sodium (137-145) mmol/L Potassium (3.5-5.1) mmol/L Chloride (98-107) mmol/L Carbon Dioxide (22-30) mmol/L Anion Gap mmol/L BUN (9-20) mg/dL Creatinine (0.66-1.25) mg/dL Est GFR (CKD-EPI)AfAm (>60 ml/min/1.73 sqM) Est GFR (CKD-EPI)NonAf (>60 ml/min/1.73 sqM) Glucose (74-99) mg/dL Calcium (8.4-10.2) mg/dL Magnesium (1.6-2.3) mg/dL Total Bilirubin (0.2-1.3) mg/dL AST (17-59) U/L ALT (21-72) U/L Alkaline Phosphatase (38-126) U/L Total Creatine Kinase (55-170) U/L CK-MB (CK-2) (0.0-2.4) ng/mL CK-MB (CK-2) Rel Index Troponin I (0.000-0.034) ng/mL Total Protein (6.3-8.2) g/dL Albumin (3.5-5.0) g/dL Amylase (30-110) U/L Lipase (23-300) U/L - Radiology Data Radiology results: report reviewed, image reviewed Disposition Clinical Impression: Unstable angina Disposition: ADMITTED IP TO THIS [facility] Condition: Stable Instructions: Generalized Anxiety Disorder (ED) Referrals: Davin Martinez MD [Primary Care Provider] - 1-2 days Decision Date: 09/24/17 Decision Time: 22:58
[2017-09-24 21:48] LABS: Basophils # (A) 0.1 k/uL (0-0.2); Basophils % (A) 1 %; Eosinophils # (A) 0.2 k/uL (0-0.7); Eosinophils % (A) 1 %; HGB 14.3 gm/dL (13.0-17.5); Lymphocytes # (A) 2.1 k/uL (1.0-4.8); Lymphocytes % (A) 19 %; MCH 29.8 pg (25.0-35.0); MCHC 34.9 g/dL (31.0-37.0); Monocytes # (A) 0.5 k/uL (0-1.0); Monocytes % (A) 5 %; Neutrophils % (A) 73 %; Platelet Count 229 k/uL (150-450); RDW 12.5 % (11.5-15.5)
[2017-09-24 21:49] LABS: MCV 85.3 fL (80.0-100.0)
--- NOTE | 2017-09-24 21:54 | XR ---
EXAMINATION TYPE: XR chest 2V DATE OF EXAM: 09/24/2017 COMPARISON: July 23, 2017 HISTORY: Chest pain TECHNIQUE: Frontal and lateral views of the chest are obtained. FINDINGS: There is no focal air space opacity, pleural effusion, or pneumothorax seen. The cardiac silhouette size is within normal limits. The osseous structures are intact. IMPRESSION: No acute cardiopulmonary process.
[2017-09-24 21:57] LABS: ALT 83 U/L (21-72); AST 45 U/L (17-59); Albumin 4.5 g/dL (3.5-5.0); Alkaline Phosphatase 114 U/L (38-126); Amylase 85 U/L (30-110); Anion Gap 12 mmol/L; Blood Urea Nitrogen 18 mg/dL (9-20); Calcium 9.5 mg/dL (8.4-10.2); Carbon Dioxide 23 mmol/L (22-30); Chloride 100 mmol/L (98-107); Glucose 105 mg/dL (74-99); Lipase 133 U/L (23-300); Magnesium 2.1 mg/dL (1.6-2.3); Potassium 4.4 mmol/L (3.5-5.1); Sodium 135 mmol/L (137-145); Total Protein 7.2 g/dL (6.3-8.2)
[2017-09-24 22:02] LABS: Partial Thromboplastin Time 23.4 sec (22.0-30.0); Prothrombin Time 9.7 sec (9.0-12.0)
[2017-09-24 22:09] LABS: Creatine Kinase 90 U/L (55-170)
[2017-09-24 22:21] LABS: Creatine Kinase MB 1.5 ng/mL (0.0-2.4); Troponin I <0.012 ng/mL (0.000-0.034)
[2017-09-24] MEDS ORDERED: PANTOPRAZOLE 40 MG/10 ML VIAL IVP STA (22:43)
[2017-09-24] MEDS ORDERED: NITROGLYCERIN SL TABS 0.4 MG TAB SUBLINGUAL PRN (22:58)
[2017-09-24] MEDS ORDERED: HEPARIN SODIUM,PORCINE 5,000 UNIT/ML 1 ML VIAL IV ONE (22:58)
[2017-09-24] MEDS ORDERED: HEPARIN SOD,PORK IN 0.45% NACL 25,000 UNIT in 0.45% NACL 1 500ML.BAG IV SCH (23:00)
[2017-09-24] MEDS: SODIUM CHLORIDE 0.9% 1,000 ML IV SCH (23:29)
[2017-09-25 01:12] VITALS: BMI 23.7
[2017-09-25 02:11] VITALS: RESP 16
[2017-09-25 04:39] LABS: Cholesterol 64 mg/dL (<200); HDL Cholesterol 25 mg/dL (40-60); LDL Cholesterol,Calculated 10 mg/dL (0-99); Triglycerides 145 mg/dL (<150)
[2017-09-25 04:42] LABS: Creatine Kinase 76 U/L (55-170)
[2017-09-25 04:56] LABS: Creatine Kinase MB 1.5 ng/mL (0.0-2.4); Troponin I <0.012 ng/mL (0.000-0.034)
[2017-09-25] MEDS ORDERED: ALPRAZolam 0.25 MG TAB PO PRN (10:10)
[2017-09-25 10:13] LABS: Creatine Kinase 80 U/L (55-170)
[2017-09-25 10:26] LABS: Creatine Kinase MB 1.7 ng/mL (0.0-2.4); Troponin I <0.012 ng/mL (0.000-0.034)
[2017-09-25] MEDS: ASPIRIN 325 MG TAB PO SCH (11:48)
[2017-09-25] MEDS: METOPROLOL TARTRATE 25 MG TAB PO SCH ×2 (11:48→20:35)
[2017-09-25] MEDS: SODIUM CHLORIDE 0.9% 1,000 ML IV SCH (11:49)
[2017-09-25] MEDS: PRASUGREL 10 MG TAB PO SCH (11:49)
[2017-09-25] MEDS: LISINOPRIL 5 MG TAB PO SCH ×2 (11:49→20:35)
--- NOTE | 2017-09-25 13:08 | P.CRDCN ---
History of Present Illness Consult date: 09/25/17 History of present illness: Mr. Andujar is a pleasant 61-year-old male past medical history significant for coronary artery disease. He presented to the hospital in July of this year as an acute STEMI and underwent emergent angioplasty of the chronically totally occluded RCA as well as angioplasty of the LAD and circumflex artery. Also suffers from anxiety. He follows with Dr. Voss. We have been asked to see him in consultation for complaints of chest pain. He states yesterday he was doing some work with his son changing a generator at home for approximately an hour. After they were done he started to bbq and was feeling very fatigued, like he overworked himself so he decided to sit down and let his son do the cooking. It was at this time he started with tightness in his chest. There is no radiation of the pain she remained localized to the midsternal region. He denies associated shortness of breath, dizziness, diaphoresis, nausea or vomiting. He did start to notice some palpitations. He was at this time that he got up and took Xanax. The tightness in his chest and palpitations lasted for approximately one hour. He is currently attending cardiac rehab 3 days a week and has not had any similar to this while exercising. He states he takes his medications religiously and has never missed a dose. EKG on arrival reveals sinus mechanism with inferior T-wave inversions. Chest x-ray is negative for an acute cardiopulmonary process. Laboratory data reviewed, WBC 11.0, hemoglobin 14.3, platelets 229, potassium 4.4, magnesium 2.1, creatinine 0.91, cardiac enzymes negative 3, LDL 64. Current cardiac medications include Effient 10 mg daily, Lopressor 25 mg twice a day, lisinopril 5 mg twice a day, atorvastatin 80 mg daily and aspirin 81 mg daily. Most recent echocardiogram performed at the time of his heart attack reveal mildly impaired left ventricular systolic function with ejection fraction 45-50% . Review of Systems At the time of my exam: CONSTITUTIONAL: Denies fever. Denies chills. EYES: Denies blurred vision. Denies vision changes. Denies eye pain. EARS, NOSE, MOUTH & THROAT: Denies headache. Denies sore throat. Denies ear pain. CARDIOVASCULAR: Denies chest pain. Denies shortness of breath. Denies orthopnea. Denies PND. Denies palpitations. RESPIRATORY: Denies cough. GASTROINTESTINAL: Denies abdominal pain. Denies diarrhea. Denies constipation. Denies nausea. Denies vomiting. MUSCULOSKELETAL: Denies myalgias. INTEGUMENTARY: Denies pruitis. Denies rash. NEUROLOGIC: Denies numbness. Denies tingling. Denies weakness. PSYCHIATRIC: Denies anxiety. Denies depression. ENDOCRINE: Denies fatigue. Denies weight change. Denies polydipsia. Denies polyurina. GENITOURINARY: Denies burning, hematuria or urgency with micturation. HEMATOLOGIC: Denies history of anemia. Denies bleeding. Past Medical History Past Medical History: Chest Pain / Angina, Myocardial Infarction (DC) Last Myocardial Infarction Date:: History of Any Multi-Drug Resistant Organisms: None Reported Past Surgical History: Heart Catheterization With Stent, Tonsillectomy Past Anesthesia/Blood Transfusion Reactions: No Reported Reaction Date of Last Stent Placement:: 07-28 Smoking Status: Never smoker - Past Family History Father Family Medical History: CVA/TIA Additional Family Medical History / Comment(s): 3 strokes Mother Family Medical History: No Reported History Medications and Allergies Home Medications Medication Instructions Recorded Confirmed Type Aspirin 81 mg PO DAILY #30 chew 07/28/17 09/25/17 Rx Atorvastatin [Lipitor] 80 mg PO HS #30 tab 07/28/17 09/25/17 Rx Lisinopril [Zestril] 5 mg PO BID #30 tab 07/28/17 09/25/17 Rx Metoprolol Tartrate [Lopressor] 25 mg PO BID #60 tab 07/28/17 09/25/17 Rx Nitroglycerin Sl Tabs [Nitrostat] 0.4 mg SUBLINGUAL Q5M PRN #25 tab 07/28/17 Rx Prasugrel [Effient] 10 mg PO DAILY #30 tab 07/28/17 09/25/17 Rx ALPRAZolam [Xanax] 0.25 mg PO DAILY PRN 09/25/17 09/25/17 History Allergies Allergy/AdvReac Type Severity Reaction Status Date / Time Iodinated Contrast- Oral and Allergy Rash/Hives Verified 09/25/17 08:18 IV Dye Physical Exam Vitals: Vital Signs Temp Pulse Pulse Resp BP BP Pulse Ox 09/25/17 08:00 70 16 09/25/17 04:00 97.5 F L 70 16 99/62 95 09/25/17 02:00 16 09/25/17 01:10 97.9 F 54 L 16 146/76 98 09/24/17 23:26 98.7 F 62 17 147/86 95 09/24/17 22:23 72 17 150/84 94 L 09/24/17 21:23 67 16 145/84 97 09/24/17 20:20 99.1 F 73 16 154/78 96 Intake and Output 09/24/17 09/25/17 09/25/17 22:59 06:59 14:59 Other: Voiding Method Toilet # Voids 1 Weight 77.111 kg 77.1 kg Blood pressure 125/75 heart rate 64 afebrile maintaining oxygen saturation on room air GENERAL: This is a 61-year-old occasion male in no apparent distress at the time of my examination. HEENT: Head is atraumatic, normocephalic. Pupils are equal, round. Sclerae anicteric. Conjunctivae are clear. Mucous membranes of the mouth are moist. Neck is supple. There is no jugular venous distention. No carotid bruit is heard. LUNGS: Clear to auscultation no wheezes, rales or rhonchi. No chest wall tenderness is noted on palpation or with deep breathing. HEART: Regular rate and rhythm without murmurs, rubs or gallops. S1 and S2 heard. ABDOMEN: Soft, nontender. Bowel sounds are heard. No organomegaly noted. EXTREMITIES: No evidence of peripheral edema and no calf tenderness noted. VASCULAR: Radial and dorsalis pedis pulses palpated, no evidence of clubbing. NEUROLOGIC: Patient is awake, alert and oriented x3. Results 09/24/17 21:36 09/24/17 21:36 Cardiac Enzymes 09/24/17 09/24/17 09/25/17 Range/Units 21:36 21:36 03:59 AST 45 (17-59) U/L CK-MB (CK-2) 1.5 1.5 (0.0-2.4) ng/mL Troponin I <0.012 <0.012 (0.000-0.034) ng/mL Coagulation 09/24/17 09/25/17 Range/Units 21:36 03:59 PT 9.7 (9.0-12.0) sec APTT 23.4 66.3 H (22.0-30.0) sec Lipids 1818 Range/Units 03:59 Triglycerides 145 (<150) mg/dL Cholesterol 64 (<200) mg/dL HDL Cholesterol 25 L (40-60) mg/dL CBC 09/24/17 Range/Units 21:36 WBC 11.0 H (3.8-10.6) k/uL RBC 4.80 (4.30-5.90) m/uL Hgb 14.3 (13.0-17.5) gm/dL Hct 41.0 (39.0-53.0) % Plt Count 229 (150-450) k/uL Comprehensive Metabolic Panel 09/24/17 Range/Units 21:36 Sodium 135 L (137-145) mmol/L Potassium 4.4 (3.5-5.1) mmol/L Chloride 100 (98-107) mmol/L Carbon Dioxide 23 (22-30) mmol/L BUN 18 (9-20) mg/dL Creatinine 0.91 (0.66-1.25) mg/dL Glucose 105 H (74-99) mg/dL Calcium 9.5 (8.4-10.2) mg/dL AST 45 (17-59) U/L ALT 83 H (21-72) U/L Alkaline Phosphatase 114 (38-126) U/L Total Protein 7.2 (6.3-8.2) g/dL Albumin 4.5 (3.5-5.0) g/dL Current Medications Generic Name Dose Route Start Last Admin Trade Name Freq PRN Reason Stop Dose Admin Aspirin 325 mg 09/25/17 09:00 Aspirin PO DAILY CAN Heparin Sodium/Sodium Chloride 500 mls @ 18.5 mls/hr 09/24/17 23:00 09/24/17 23:31 25,000 unit/ Sodium Chloride IV 12 units/kg/hr .Q24H CAN 18.5 mls/hr Protocol Administration 12 UNITS/KG/HR Sodium Chloride 1,000 mls @ 100 mls/hr 09/24/17 23:00 09/24/17 23:29 Saline 0.9% IV 100 mls/hr .Q10H CAN Administration Nitroglycerin 0.4 mg 09/24/17 22:58 Nitrostat SUBLINGUAL Q5M PRN Chest Pain Intake and Output 09/24/17 09/25/17 09/25/17 22:59 06:59 14:59 Other: Voiding Method Toilet # Voids 1 Weight 77.111 kg 77.1 kg 09/24/17 21:36 09/24/17 21:36 Assessment and Plan Assessment: ASSESSMENT 1. Precordial chest pain, acute coronary event has been ruled out with no acute EKG evidence of acute ischemia and negative cardiac enzymes. 2. History of coronary artery disease with recent stenting of the RCA, LAD and circumflex artery July 2017. PLAN He should remain nothing by mouth after midnight for stress echocardiogram in the morning to assess for any evidence of stress-induced ischemia status post coronary artery revascularization. Further recommendations to follow based upon diagnostic test findings. Thank you kindly for this consultation. The above impression and plan of care have been discussed and directed by the signing physician. Marilee Lorenzo, nurse practitioner, acting as scribe for signing physician.
--- NOTE | 2017-09-25 17:30 | HP ---
HISTORY AND PHYSICAL CHIEF COMPLAINT: 61-year-old white male with chest pain. HISTORY OF PRESENT ILLNESS: A 61-year-old white male with history of coronary artery disease. He had an acute STEMI, angioplasty of the RCA and the LAD and circumflex artery. He thought he might have anxiety. He was working on a generator with his son and maybe he overdid it. Presents with atypical chest pain at which time he came to the hospital. He denies shortness of breath, dizziness, diaphoresis, nausea, vomiting. Due to some palpitations and some Xanax that did not work. He came to the hospital. He is in cardiac rehab 3 times a week. Never misses a dose. EKG shows T-wave inversions. Chest x-ray is negative. Cardiac enzymes so far negative x2. Ejection fraction on the last echo was 45 to 50%. REVIEW OF SYSTEMS: Fourteen point review of systems negative except for as mentioned in HPI. PAST MEDICAL HISTORY: Angioplasty times 2-3, chest pain, anxiety, hypertension. PAST SURGICAL HISTORY: Heart catheterization with stent, tonsillectomy. No smoking. FAMILY HISTORY: Father CVA and TIA with 3 strokes. Mother negative. HOME MEDICINES: Lipitor 80 daily, Zestril 5 mg b.i.d., metoprolol 25 b.i.d., Nitro sublingual p.r.n., Effient 10 mg daily, Xanax 0.25 mg daily. ALLERGIES: To IODINE. VITAL SIGNS: Temperature 97 to 99, pulse of 70 to 60s, respiratory 16 to 18, blood pressure 140s over 50s, O2 94-95% on room air. CARDIOVASCULAR: S1, S2. Lungs are clear. GI: Soft. PSYCH: Fair mood and affect. NEUROLOGIC: Alert and orient x3. OPHTHALMOLOGICAL: Pupils equal, round, reactive to light and accommodation. LABS: Labs reviewed. ASSESSMENT: 1. Atypical chest pain. Doubt myocardial infarction. His troponins are negative and EKG is negative. 2. Family history of coronary artery disease. 3. Anxiety. Await for Cardiology consult. Waiting for 3rd troponin to come back. Possible stress test will be done. Please see further orders in the chart. MMODL / IJN: [id number] /
[2017-09-25] MEDS ORDERED: LISINOPRIL 5 MG TAB PO SCH (21:00)
[2017-09-25] MEDS ORDERED: ATORVASTATIN 80 MG TAB PO SCH (21:00)
[2017-09-25] MEDS ORDERED: METOPROLOL TARTRATE 25 MG TAB PO SCH (21:00)
[2017-09-26 08:04] VITALS: BP 128/74; TEMP 98.4
[2017-09-26] MEDS ORDERED: LISINOPRIL 5 MG TAB PO SCH ×2 (09:00→21:00)
[2017-09-26] MEDS ORDERED: PRASUGREL 10 MG TAB PO SCH (09:00)
[2017-09-26 09:16] VITALS: PULSE 66
--- NOTE | 2017-09-26 10:34 | P.PN ---
Subjective Progress Note Date: 09/26/17 Mr. Andujar is seen and examined with myself and Dr. Joaquin. He is resting comfortably in bed in no acute distress. He denies symptoms of chest pain since admission, telemetry tracings have been unremarkable, blood pressure this morning 128/74 hert rate 67 afebrile and maintain oxygen saturation on room air. He has had a couple instances of low blood pressure overnight with systolic in the 90's. He was asymptomatic at the time. Currently taking lisinopril 5 mg BID. Objective - Vital Signs Vital signs: Vital Signs Temp 98.4 F 09/26/17 08:00 Pulse 66 09/26/17 08:00 Resp 16 09/26/17 08:00 BP 128/74 09/26/17 08:00 Pulse Ox 97 09/26/17 08:00 Intake & Output 09/25/17 09/26/17 09/26/17 18:59 06:59 18:59 Other: Voiding Method Toilet Toilet Toilet # Voids 3 3 - Exam GENERAL: Well-appearing, well-nourished and in no acute distress. NECK: Supple without JVD or thyromegaly. LUNGS: Breath sounds clear to auscultation bilaterally. Respiration equal and unlabored. No wheezes, rales or rhonchi. HEART: Regular rate and rhythm without murmurs, rubs or gallops. S1 and S2 heard. EXTREMITIES: Normal range of motion, no edema. No clubbing or cyanosis. Peripheral pulses intact and strong. - Labs CBC & Chem 7: 09/24/17 21:36 09/24/17 21:36 Assessment and Plan Assessment: ASSESSMENT 1. Precordial chest pain, acute coronary event has been ruled out with no acute EKG evidence of acute ischemia and negative cardiac enzymes. 2. History of coronary artery disease with recent stenting of the RCA, LAD and circumflex artery July 2017. PLAN Decrease lisinopril to 5 mg daily at bedtime only. Proceed with stress echocardiogram as was previously ordered. If above diagnostic testing is negative he is stable from a cardiac perspective. Follow-up with Dr. Voss in 2-3 weeks. The above impression and plan of care have been discussed and directed by the signing physician. Marilee Lorenzo, nurse practitioner, acting as scribe for signing physician.
[2017-09-26] MEDS: PRASUGREL 10 MG TAB PO SCH (12:21)
[2017-09-26] MEDS: ASPIRIN 325 MG TAB PO SCH (12:21)
[2017-09-26] MEDS: METOPROLOL TARTRATE 25 MG TAB PO SCH (12:21)
--- NOTE | 2017-09-26 13:49 | ECHOS ---
STRESS ECHOCARDIOGRAM DATE OF SERVICE: 09/26/2017 INDICATIONS: MEDICATIONS: BASELINE HEART RATE: 79 BASELINE BLOOD PRESSURE: 125/83 MAXIMUM HEART RATE: 153 MAXIMUM BLOOD PRESSURE: 172/59 85% MPHR: 136 100% MPHR: 160 METS: 8.5 MAXIMUM STAGE REACHED: III TOTAL EXERCISE TIME: 7 minutes. CLINICAL INFORMATION: Baseline EKG revealed sinus mechanism with evidence of inferior nonspecific ST-T changes and poor R-wave progression. Patient walked for 7 minutes on standard Myron protocol. Achieved a maximal heart rate of 153 beats per minute which is more than 85% of predicted maximal. He developed fatigue and shortness of breath but did not have any angina or arrhythmia. EKG revealed upsloping ST-segment depression that was seen in leads II, III, aVF, V5 and V6. These changes were not associated with any subjective symptoms of angina and in the recovery period by 3 minutes the changes were back to baseline. Technically this is a positive stress test without subjective symptoms of angina or arrhythmia. Baseline echo images revealed inferobasal hypokinesia. The hypokinesia involves the inferior basal as well as the mid inferior wall of left ventricle. The rest of the segments were demonstrating good left contractility. At peak exercise. There was good augmentation of left ventricular wall motion and wall thickening in all segments except the mid inferior and inferobasal segments suggesting that there is evidence of prior myocardial infarction. There is, however, no stress- induced ischemia. FINAL IMPRESSION: 1. Fair exercise capacity with a positive stress test by EKG criteria without subjective symptoms of angina. 2. Abnormal stress echocardiogram suggestive of prior inferior myocardial infarction without stress-induced ischemia. MMODL / IJN: [id number] /
== END 2017-09-26 16:55 | disposition home or self-care (01) ==
LOC: EC 20:16 → 3OBS 09-25 00:01
PROVIDERS: ADMIT Family Medicine; ATTEND Family Medicine
DX: R07.89 Other chest pain (principal); F41.9 Anxiety disorder, unspecified; I25.10 Atherosclerotic heart disease of native coronary artery without angina pectoris; I10 Essential (primary) hypertension; E78.5 Hyperlipidemia, unspecified; I25.2 Old myocardial infarction; Z79.82 Long term (current) use of aspirin; Z79.899 Other long term (current) drug therapy; Z79.02 Long term (current) use of antithrombotics/antiplatelets; Z91.041 Radiographic dye allergy status; Z95.5 Presence of coronary angioplasty implant and graft; Z82.3 Family history of stroke; Z82.49 Family history of ischemic heart disease and other diseases of the circulatory system
CPT/HCPCS: 99284 ×2; 96365 ×2; 96376 ×2; 96361 ×3; 96366; 36415; 93005; 93017; 93350; 80061; 80053; 82150; 82550 ×2; 82553 ×2; 83690; 83735; 84484 ×2; 85025; 85610; 85730 ×2; 71046; G0378 ×2; J1644 ×2; C9113

== ENCOUNTER 2018-02-17 18:01 | Observation (INO) | payer OTHER ==
--- NOTE | 2018-02-17 18:29 | ED ---
General Adult HPI - General Chief complaint: Chest Pain Stated complaint: chest pain Time Seen by Provider: 02/17/18 18:05 Source: patient, RN notes reviewed, old records reviewed Mode of arrival: wheelchair Limitations: no limitations - History of Present Illness Initial comments: 62-year-old male presenting for evaluation of chest pain. Patient states that beginning yesterday evening approximately 24 hours ago he had both right and left upper chest pain. This was dull in nature, 1 out of 10. He does have history of CAD status post stenting area denies any associated nausea or vomiting. Denies diaphoresis. Denies dyspnea. Patient has no history diabetes , he is a nonsmoker. Pain is resolved with time my evaluation. Has been intermittent throughout the day today. He did take aspirin and nitroglycerin yesterday evening as well as of Xanax for this pain. - Related Data Home Medications Medication Instructions Recorded Confirmed Aspirin EC [Ecotrin Low Dose] 81 mg PO DAILY 02/17/18 02/17/18 Atorvastatin [Lipitor] 40 mg PO HS 02/17/18 02/17/18 Lisinopril [Zestril] 5 mg PO DAILY 02/17/18 02/17/18 Previous Rx's Medication Instructions Recorded Metoprolol Tartrate [Lopressor] 25 mg PO BID #60 tab 07/28/17 Nitroglycerin Sl Tabs [Nitrostat] 0.4 mg SUBLINGUAL Q5M PRN #25 tab 07/28/17 Prasugrel [Effient] 10 mg PO DAILY #30 tab 07/28/17 Allergies Allergy/AdvReac Type Severity Reaction Status Date / Time Iodinated Contrast- Oral and Allergy Rash/Hives Verified 02/17/18 19:05 IV Dye Review of Systems ROS Statement: Those systems with pertinent positive or pertinent negative responses have been documented in the HPI. ROS Other: All systems not noted in ROS Statement are negative. Past Medical History Past Medical History: Chest Pain / Angina, Myocardial Infarction ([place]) Last Myocardial Infarction Date:: History of Any Multi-Drug Resistant Organisms: None Reported Past Surgical History: Heart Catheterization With Stent, Tonsillectomy Past Anesthesia/Blood Transfusion Reactions: No Reported Reaction Date of Last Stent Placement:: 07-28 Past Psychological History: Anxiety Smoking Status: Never smoker Past Alcohol Use History: None Reported Past Drug Use History: None Reported - Past Family History Father Family Medical History: CVA/TIA Additional Family Medical History / Comment(s): 3 strokes Mother Family Medical History: No Reported History General Exam Limitations: no limitations General appearance: alert, in no apparent distress Head exam: Present: atraumatic, normocephalic Eye exam: Present: normal appearance, PERRL ENT exam: Present: normal exam Neck exam: Present: normal inspection. Absent: tenderness, meningismus Respiratory exam: Present: normal lung sounds bilaterally. Absent: respiratory distress, wheezes Cardiovascular Exam: Present: regular rate, normal rhythm GI/Abdominal exam: Present: soft. Absent: distended, tenderness, guarding Extremities exam: Present: normal inspection, normal capillary refill. Absent: pedal edema, calf tenderness Back exam: Present: normal inspection, full ROM Neurological exam: Present: alert, oriented X3, CN II-XII intact. Absent: motor sensory deficit Psychiatric exam: Present: normal affect, normal mood Skin exam: Present: warm, dry, intact. Absent: cyanosis, diaphoretic Course Vital Signs 02/17/18 02/17/18 02/17/18 18:02 19:27 20:15 Temperature 98.3 F 98.3 F Pulse Rate 79 84 77 Respiratory 18 16 16 Rate Blood Pressure 151/90 164/87 124/67 O2 Sat by Pulse 96 97 96 Oximetry EKG Findings - EKG Comments: EKG Findings:: G: Normal sinus rhythm, inferior infarct, age undetermined, rate of 73, WI interval 180, QRS duration 94, QTC 431 overall appears unchanged compared to previous EKG in September 2017. Medical Decision Making - Medical Decision Making 62-year-old male presenting for evaluation of chest pain. Pain is somewhat atypical however patient does have significant history of coronary artery disease. EKG appears unchanged compared to previous. CBC CMP are unremarkable. Initial troponin is negative. Patient remains chest pain-free while in the emergency department. He will be kept in observation for telemetry , serial cardiac enzymes, and cardiology consultation. - Lab Data Result diagrams: 02/17/18 18:30 02/17/18 18:30 Lab Results 02/17/18 02/17/18 02/17/18 Range/Units 18:30 18:30 18:30 WBC 7.8 (3.8-10.6) k/uL RBC 4.90 (4.30-5.90) m/uL Hgb 14.7 (13.0-17.5) gm/dL Hct 43.0 (39.0-53.0) % MCV 87.8 (80.0-100.0) fL MCH 30.0 (25.0-35.0) pg MCHC 34.2 (31.0-37.0) g/dL RDW 13.0 (11.5-15.5) % Plt Count 268 (150-450) k/uL Neutrophils % 59 % Lymphocytes % 29 % Monocytes % 7 % Eosinophils % 3 % Basophils % 1 % Neutrophils # 4.6 (1.3-7.7) k/uL Lymphocytes # 2.2 (1.0-4.8) k/uL Monocytes # 0.5 (0-1.0) k/uL Eosinophils # 0.2 (0-0.7) k/uL Basophils # 0.1 (0-0.2) k/uL PT (9.0-12.0) sec INR (<1.2) APTT (22.0-30.0) sec Sodium 139 (137-145) mmol/L Potassium 4.4 (3.5-5.1) mmol/L Chloride 106 (98-107) mmol/L Carbon Dioxide 23 (22-30) mmol/L Anion Gap 10 mmol/L BUN 17 (9-20) mg/dL Creatinine 0.90 (0.66-1.25) mg/dL Est GFR (CKD-EPI)AfAm >90 (>60 ml/min/1.73 sqM) Est GFR (CKD-EPI)NonAf >90 (>60 ml/min/1.73 sqM) Glucose 134 H (74-99) mg/dL Calcium 9.6 (8.4-10.2) mg/dL Magnesium 2.1 (1.6-2.3) mg/dL Total Bilirubin 0.8 (0.2-1.3) mg/dL AST 44 (17-59) U/L ALT 69 (21-72) U/L Alkaline Phosphatase 86 (38-126) U/L Total Creatine Kinase 90 (55-170) U/L CK-MB (CK-2) 1.4 (0.0-2.4) ng/mL CK-MB (CK-2) Rel Index 1.6 Troponin I <0.012 (0.000-0.034) ng/mL NT-Pro-B Natriuret Pep pg/mL Total Protein 6.9 (6.3-8.2) g/dL Albumin 4.4 (3.5-5.0) g/dL Lipase 125 (23-300) U/L 02/17/18 02/17/18 Range/Units 18:30 18:30 WBC (3.8-10.6) k/uL RBC (4.30-5.90) m/uL Hgb (13.0-17.5) gm/dL Hct (39.0-53.0) % MCV (80.0-100.0) fL MCH (25.0-35.0) pg MCHC (31.0-37.0) g/dL RDW (11.5-15.5) % Plt Count (150-450) k/uL Neutrophils % % Lymphocytes % % Monocytes % % Eosinophils % % Basophils % % Neutrophils # (1.3-7.7) k/uL Lymphocytes # (1.0-4.8) k/uL Monocytes # (0-1.0) k/uL Eosinophils # (0-0.7) k/uL Basophils # (0-0.2) k/uL PT 9.7 (9.0-12.0) sec INR 1.0 (<1.2) APTT 22.8 (22.0-30.0) sec Sodium (137-145) mmol/L Potassium (3.5-5.1) mmol/L Chloride (98-107) mmol/L Carbon Dioxide (22-30) mmol/L Anion Gap mmol/L BUN (9-20) mg/dL Creatinine (0.66-1.25) mg/dL Est GFR (CKD-EPI)AfAm (>60 ml/min/1.73 sqM) Est GFR (CKD-EPI)NonAf (>60 ml/min/1.73 sqM) Glucose (74-99) mg/dL Calcium (8.4-10.2) mg/dL Magnesium (1.6-2.3) mg/dL Total Bilirubin (0.2-1.3) mg/dL AST (17-59) U/L ALT (21-72) U/L Alkaline Phosphatase (38-126) U/L Total Creatine Kinase (55-170) U/L CK-MB (CK-2) (0.0-2.4) ng/mL CK-MB (CK-2) Rel Index Troponin I (0.000-0.034) ng/mL NT-Pro-B Natriuret Pep 213 pg/mL Total Protein (6.3-8.2) g/dL Albumin (3.5-5.0) g/dL Lipase (23-300) U/L Disposition Clinical Impression: Chest pain Disposition: ADMITTED IP TO THIS HOSP Condition: Stable Is patient prescribed a controlled substance at d/c from ED?: No Referrals: Davin Martinez MD [Primary Care Provider] - 1-2 days Decision to Admit Reason: Admit from EC Decision Date: 02/17/18 Decision Time: 20:26
[2018-02-17 18:43] LABS: Basophils # (A) 0.1 k/uL (0-0.2); Basophils % (A) 1 %; Eosinophils # (A) 0.2 k/uL (0-0.7); Eosinophils % (A) 3 %; HGB 14.7 gm/dL (13.0-17.5); Lymphocytes # (A) 2.2 k/uL (1.0-4.8); Lymphocytes % (A) 29 %; MCHC 34.2 g/dL (31.0-37.0); MCV 87.8 fL (80.0-100.0); Mean Platelet Volume 7.4; Monocytes # (A) 0.5 k/uL (0-1.0); Monocytes % (A) 7 %; Neutrophils # (A) 4.6 k/uL (1.3-7.7); Neutrophils % (A) 59 %; Platelet Count 268 k/uL (150-450); WBC 7.8 k/uL (3.8-10.6)
[2018-02-17 18:52] LABS: Partial Thromboplastin Time 22.8 sec (22.0-30.0); Prothrombin Time 9.7 sec (9.0-12.0)
[2018-02-17 18:57] LABS: ALT 69 U/L (21-72); AST 44 U/L (17-59); Albumin 4.4 g/dL (3.5-5.0); Alkaline Phosphatase 86 U/L (38-126); Anion Gap 10 mmol/L; Blood Urea Nitrogen 17 mg/dL (9-20); Calcium 9.6 mg/dL (8.4-10.2); Carbon Dioxide 23 mmol/L (22-30); Chloride 106 mmol/L (98-107); Glucose 134 mg/dL (74-99); Lipase 125 U/L (23-300); Magnesium 2.1 mg/dL (1.6-2.3); Potassium 4.4 mmol/L (3.5-5.1); Sodium 139 mmol/L (137-145); Total Bilirubin 0.8 mg/dL (0.2-1.3); Total Protein 6.9 g/dL (6.3-8.2)
[2018-02-17 19:08] LABS: Creatine Kinase 90 U/L (55-170)
[2018-02-17 19:19] LABS: Creatine Kinase MB 1.4 ng/mL (0.0-2.4); Troponin I <0.012 ng/mL (0.000-0.034)
--- NOTE | 2018-02-17 19:19 | XR ---
EXAMINATION TYPE: XR chest 2V DATE OF EXAM: 02/17/2018 COMPARISON: 09/24/2017 HISTORY: Chest pain TECHNIQUE: Frontal and lateral views of the chest are obtained. FINDINGS: Heart and mediastinum are normal. Lungs are clear. Diaphragm is normal. Bony thorax appear s normal. IMPRESSION: Normal chest. No change.
[2018-02-17] MEDS ORDERED: ASPIRIN 325 MG TAB PO STA (19:59)
[2018-02-17] MEDS ORDERED: NITROGLYCERIN SL TABS 0.4 MG TAB SUBLINGUAL PRN (19:59)
[2018-02-17] MEDS ORDERED: ACETAMINOPHEN TAB 325 MG TAB PO PRN (20:23)
[2018-02-17] MEDS ORDERED: NALOXONE 0.4 MG/ML 1 ML VIAL IV PRN (20:23)
[2018-02-17] MEDS: ATORVASTATIN 40 MG TAB PO SCH (20:52)
[2018-02-17 21:17] VITALS: BMI 23.7
--- NOTE | 2018-02-17 21:17 | P.HPIM ---
History of Present Illness H&P Date: 02/17/18 Chief Complaint: Chest pain Mr. Andujar is a pleasant 61-year-old male past medical history significant for coronary artery disease, anxiety, hypertension and dyslipidemia. 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 Patient states that beginning yesterday evening right before bed and approximately 24 hours ago he had both right and left upper chest pain with some radiation described as numbness and tingling to his left upper extremity. This was dull and achy in nature, 2 out of 10. Patient denies any associated nausea or vomiting. Denies diaphoresis. Denies dyspnea. Patient has no history diabetes, he is a nonsmoker. Pain is resolved with time my evaluation. Has been intermittent throughout the day today. He did take aspirin and nitroglycerin yesterday evening as well as of Xanax for this pain. Patient reports compliance with his medical therapy and continues to take Effient. In the ER the patient was started on aspirin and recommended for admission. Initial EKG is negative for any suggestive ischemia and appears unchanged from his previous EKG which shows sinus mechanism with inferior T-wave inversions his initial troponin is negative. Past Medical History Past Medical History: Chest Pain / Angina, Myocardial Infarction ([place]) Last Myocardial Infarction Date:: History of Any Multi-Drug Resistant Organisms: None Reported Past Surgical History: Heart Catheterization With Stent, Tonsillectomy Past Anesthesia/Blood Transfusion Reactions: No Reported Reaction Date of Last Stent Placement:: 07-28 Past Psychological History: Anxiety Smoking Status: Never smoker Past Alcohol Use History: None Reported Past Drug Use History: None Reported - Past Family History Father Family Medical History: CVA/TIA Additional Family Medical History / Comment(s): 3 strokes Mother Family Medical History: No Reported History Medications and Allergies Home Medications Medication Instructions Recorded Confirmed Type Metoprolol Tartrate [Lopressor] 25 mg PO BID #60 tab 07/28/17 02/17/18 Rx Nitroglycerin Sl Tabs [Nitrostat] 0.4 mg SUBLINGUAL Q5M PRN #25 tab 07/28/1704/27 Rx Prasugrel [Effient] 10 mg PO DAILY #30 tab 07/28/17 02/17/18 Rx Aspirin EC [Ecotrin Low Dose] 81 mg PO DAILY 02/17/18 02/17/18 History Atorvastatin [Lipitor] 40 mg PO HS 02/17/18 02/17/18 History Lisinopril [Zestril] 5 mg PO DAILY 02/17/18 02/17/18 History Allergies Allergy/AdvReac Type Severity Reaction Status Date / Time Iodinated Contrast- Oral and Allergy Rash/Hives Verified 02/17/18 19:05 IV Dye Physical Exam Vitals: Vital Signs Temp Pulse Pulse Resp BP BP Pulse Ox 02/17/18 20:55 98.1 F 70 16 110/71 95 02/17/18 20:52 98.6 F 87 16 122/68 95 02/17/18 20:15 77 16 124/67 96 02/17/18 19:27 98.3 F 84 16 164/87 97 02/17/18 18:02 98.3 F 79 18 151/90 96 Intake and Output 02/17/18 02/17/18 02/17/18 06:59 14:59 22:59 Other: Weight 77.2 kg Constitutional: No acute distress, conversant, pleasant Eyes: Anicteric sclerae, moist conjunctiva, no lid-lag, PERRLA ENMT: NC/AT,Oropharynx clear, no erythema, exudates Neck:Supple, FROM, no masses, or JVD, No carotid bruits; No thyromegaly Lungs: Clear to auscultation, Clear to percussion, Normal respiratory effort, no accessory muscle use Cardiovascular: Heart regular in rate and rhythm, No murmurs, gallops, or rubs no peripheral edema Abdominal: Soft Nontender, nom distended, no guarding, no rebound or rigidity, Normoactive bowel sounds No hepatomegaly, No splenomegaly, No palpable mass No abdominal wall hernia noted Skin: Normal temperature, tone, texture, turgor, No induration No subcutaneous nodules, No rash, lesions, No ulcers Extremities:No digital cyanosis No clubbing, Pedal pulses intact and symmetrical Radial pulses intact and symmetrical Normal gait and station, No calf tenderness Psychiatric: Alert and oriented to person, place and time, Appropriate affect Intact judgement Neuro: Muscles Strength 5/5 in all 4 extremities, Sensation to light touch grossly present throughout, Cranial nerves II-XII grossly intact. No focal sensory deficits Results CBC & Chem 7: 02/17/18 18:30 02/17/18 18:30 Labs: Abnormal Lab Results - Last 24 Hours (Table) 02/17/18 Range/Units 18:30 Glucose 134 H (74-99) mg/dL Assessment and Plan (1) Atypical chest pain Current Visit: Yes Status: Acute Code(s): R07.89 - OTHER CHEST PAIN SNOMED Code(s): 139705353 (2) Presence of stent in coronary artery in patient with coronary artery disease Current Visit: Yes Status: Acute Code(s): I25.10 - ATHSCL HEART DISEASE OF [place] CORONARY ARTERY W/O ANG PCTRS; Z95.5 - PRESENCE OF CORONARY ANGIOPLASTY IMPLANT AND GRAFT SNOMED Code(s): 358537112 (3) Essential hypertension Current Visit: Yes Status: Acute Code(s): I10 - ESSENTIAL (PRIMARY) HYPERTENSION SNOMED Code(s): 50488070 (4) Dyslipidemia Current Visit: Yes Status: Acute Code(s): E78.5 - HYPERLIPIDEMIA, UNSPECIFIED SNOMED Code(s): 190983670 Plan: Patient placed in observation after presenting with atypical chest pain given his history of coronary artery disease with stenting patient is placed on observation we'll continue to cycle his troponins as is his initial was negative <.012 and his EKG was negative for any suggestion any acute ischemia. We'll plan to continue routine chest pain orders, yarder operator being consulted and will follow the patient's clinical course.
[2018-02-17] MEDS: METOPROLOL TARTRATE 25 MG TAB PO SCH (22:55)
[2018-02-18 01:29] LABS: Creatine Kinase 68 U/L (55-170)
[2018-02-18 01:42] LABS: Creatine Kinase MB 1.2 ng/mL (0.0-2.4); Troponin I <0.012 ng/mL (0.000-0.034)
[2018-02-18 08:16] LABS: Creatine Kinase 57 U/L (55-170)
[2018-02-18 08:28] LABS: Creatine Kinase MB 1.1 ng/mL (0.0-2.4); Troponin I <0.012 ng/mL (0.000-0.034)
[2018-02-18] MEDS ORDERED: LISINOPRIL 5 MG TAB PO SCH (09:00)
--- NOTE | 2018-02-18 09:06 | P.PN ---
Subjective Progress Note Date: 02/18/18 Principal diagnosis: Chest pain rule out acute coronary syndrome. This is a 62-year-old male with past medical history of CAD with h/o STEMI, anxiety, hypertension, hyperlipidemia who presented to the hospital for chest pain. Review of his chart shows angioplasty in July 2017 which resulted in a stent of the RCA. Stress echo in September 2017 showed positive stress test (suggestive of prior CT) without subjective symptoms of angina or stress-induced ischemia. His troponins have been < 0.0123. EKG shows normal sinus rhythm with incomplete right bundle branch block. He is currently restarted on his home medication of aspirin, Lipitor, lisinopril , metoprolol, Parasugel. He is pending cardiology evaluation. Patient was seen and examined. No acute events overnight. Chest pain resolved. States it started on night as he was going to sleep. States it felt like a muscular pain but with numbness in the L arm. Resolved by Tuesday AM. Was able to go to work but came in for evaluation after work. He currently denies chest pain, SOB, palpitations, dizziness, changes in urination or bowel habits. Objective - Vital Signs Vital signs: Vital Signs Temp 97.4 F L 02/18/18 08:00 Pulse 69 02/18/18 08:00 Resp 16 02/18/18 08:00 BP 131/83 02/18/18 08:00 Pulse Ox 95 02/18/18 08:00 Intake & Output 02/17/18 02/18/18 02/18/18 18:59 06:59 18:59 Weight 77.111 kg 77.2 kg Other: Voiding Method Toilet # Voids 2 - Exam General: non toxic, no distress, appears at stated age Derm: warm, dry Head: atraumatic, normocephalic, symmetric Eyes: EOMI, no lid lag, anicteric sclera Mouth: no lip lesion, mucus membranes moist Cardiovascular: S1S2 reg, no murmur, positive posterior tibial pulse bilateral, non tender to palpation of chest wall Lungs: CTA bilateral, no rhonchi, no rales , no accessory muscle use Abdominal: soft, nontender to palpation, no guarding, no appreciable organomegaly Ext: no gross muscle atrophy, no edema, no contractures Neuro: CN II-XI grossly intact, no focal neuro deficits Psych: Alert, oriented, appropriate affect - Labs CBC & Chem 7: 02/17/18 18:30 02/17/18 18:30 Labs: Abnormal Lab Results - Last 24 Hours (Table) 02/17/18 Range/Units 18:30 Glucose 134 H (74-99) mg/dL Assessment and Plan Assessment: Assessment This is a 62-year-old male with past medical history of CAD with h/o STEMI, anxiety, hypertension, hyperlipidemia who presented to the hospital for chest pain. Review of his chart shows angioplasty in July 2017 which resulted in a stent of the RCA. Stress echo in September 2017 showed positive stress test ( suggestive of prior CT) without subjective symptoms of angina or stress-induced ischemia. Admitted for chest pain r/o ACS. Plan Active 1. Chest pain: High risk. Non tender, non pleuritic. Loaded with ASA in the ED. Recent angiogram with RCA stent in 07/2017 with + stress without induced ischemia in 09/2017. Trops < 0.012 x 3, EKG shows NSR with incomplete RBBB. Tylenol, Nitrostat PRN for pain. Telemetry monitoring. FU Cardiology for possible stress. Stable 2. CAD: A1c 5.8 07/2017. Lipid panel unremarkable except low HDL 09/2017. Continue dual-antiplatelet with ASA/Prasugrel. Continue Lisinopril and Metoprolol. FU Cardiology outPT 3. HTN: BP 113/74. Continue Lisinopril and Metoprolol. Monitor vitals, adjust medications as necessary. 4. HLDA: Lipid panel unremarkable except low HDL 09/2017. Continue Lipitor.
[2018-02-18] MEDS ORDERED: SODIUM CHLORIDE 0.9% 1,000 ML in EMPTY BAG 1 BAG IV ONE (10:42)
[2018-02-18] MEDS ORDERED: ALPRAZolam 0.25 MG TAB PO PRN (10:42)
[2018-02-18] MEDS ORDERED: NITROGLYCERIN SL TABS 0.4 MG TAB SUBLINGUAL PRN (10:42)
[2018-02-18] MEDS ORDERED: ALPRAZolam 0.5 MG TAB PO PRN (10:42)
[2018-02-18] MEDS ORDERED: ATORVASTATIN 80 MG TAB PO STA (10:42)
[2018-02-18] MEDS ORDERED: ASPIRIN 325 MG TAB PO STA (10:42)
[2018-02-18] MEDS: PRASUGREL 10 MG TAB PO SCH (10:46)
[2018-02-18] MEDS: METOPROLOL TARTRATE 25 MG TAB PO SCH ×2 (10:46→21:46)
[2018-02-18] MEDS: ASPIRIN 81 MG PO SCH (10:46)
--- NOTE | 2018-02-18 10:52 | CONS ---
CONSULTATION Mr. Andujar is a 62-year-old gentleman who is seen for the cardiac evaluation. This patient's medical records were reviewed. This patient presented to the hospital with a complaint of chest pain. This patient has a known history of coronary artery disease. He presented with acute inferior wall myocardial infarction in July of 2017. At that time, patient underwent stent to the RCA as well as LAD and circumflex coronary artery. Since then, he has been taking his medications regularly. He has been having intermittent chest discomfort, which were atypical angina. Patient was admitted in September with atypical chest pain and underwent a stress echocardiographic study, which was normal. The patient had an episode of chest discomfort on night. The pain was in the left upper part of the chest. Pain was dull aching in character and subsequently patient had some radiation of the pain to the left upper extremity. The pain lasted for a couple of hours, subsequently it got better. Because the patient was concerned, he came to the emergency room and subsequently is admitted. The patient is moderately active physically. MEDICATIONS: Home medications include aspirin, Lipitor, Zestril, metoprolol 25 mg b.i.d. and Effient 10 mg daily. PAST MEDICAL HISTORY: Past medical history includes a prior myocardial infarction and multiple stent. SMOKING HISTORY: Patient is a never smoker. FAMILY HISTORY: Family history is unremarkable. PHYSICAL EXAMINATION: Physical examination revealed in the emergency room this patient's vital signs were stable. Blood pressure is 131/83 mmHg. Patient is afebrile. Heart rate is 60 per minute. HEENT examination is negative. Neck is supple. There is no increase in jugular venous pressure. Both the carotid pulses are felt. There is no bruit. Chest is symmetrical. HEART: The PMI is not felt. First and second heart sounds are normal. There is no evidence of any murmur. Lungs are clinically clear to auscultation and percussion. Abdomen is soft. Liver and spleen are not enlarged. Bowel sounds are heard. EXTREMITIES: Peripheral pulsations are 2+. The patient's cardiac enzymes are normal. Electrolytes are normal. The patient's cholesterol was 64, and LDL level was 10 in September of 2017. EKG shows evidence of old inferior wall myocardial infarction. FINAL IMPRESSION: This patient has prior myocardial infarction with multiple angioplasties. The patient was admitted with a history of prolonged episode of chest discomfort, unstable angina cannot be entirely excluded though some of the features are suggestive of atypical angina. In view of this patient's multiple risk factors and multiple angioplasties, patient is advised further evaluation with cardiac catheterization for definitive diagnosis. Procedure and the risks were fully explained to the patient and he would like to proceed with it. MANFRED / AMANN: [id number] /
--- NOTE | 2018-02-18 15:03 | ECHOF ---
Referral Reason:cp MEASUREMENTS -------- HEIGHT: 162.6 cm WEIGHT: 77.1 kg BP: RVIDd: 2.8 cm (< 3.3) IVSd: 1.4 cm (0.6 - 1.1) LVIDd: 3.6 cm (3.9 - 5.3) LVPWd: 1.1 cm (0.6 - 1.1) IVSs: 1.5 cm LVIDs: 2.7 cm LVPWs: 1.1 cm LA Diam: 3.4 cm (2.7 - 3.8) Ao Diam: 2.8 cm (2.0 - 3.7) AV Cusp: 2.0 cm (1.5 - 2.6) LA Diam: 3.7 cm (2.7 - 3.8) MV EXCURSION: 17.245 mm (> 18.000) MV EF SLOPE: 75 mm/s (70 - 150) EPSS: 0.5 cm MV E Martin: 0.38 m/s MV DecT: 220 ms MV A Martin: 0.66 m/s MV E/A Ratio: 0.58 RAP: 5.00 mmHg RVSP: 12.04 mmHg FINDINGS -------- Sinus rhythm. This was a technically good study. The left ventricular size is normal. There is moderate concentric left ventricular hypertrophy. O verall left ventricular systolic function is low-normal with, an EF between 50 - 55 %. Basal inferi or LV wall motion is hypokinetic. Mid inferior LV wall motion is hypokinetic. The right ventricle is normal in size. The left atrial size is normal. The right atrial size is normal. Trace to mild aortic regurgitation. Mild mitral annular calcification present. Mild mitral regurgitation is present. Mild tricuspid regurgitation present. There is no evidence of pulmonary hypertension. The right v entricular systolic pressure, as measured by Doppler, is 12.04mmHg. There is no pulmonic regurgitation present. The aortic root size is normal. There is no pericardial effusion. CONCLUSIONS -------- 1. The left ventricular size is normal. 2. There is moderate concentric left ventricular hypertrophy. 3. Overall left ventricular systolic function is low-normal with, an EF between 50 - 55 %. 4. Basal inferior LV wall motion is hypokinetic. 5. Mid inferior LV wall motion is hypokinetic. 6. The right ventricle is normal in size. 7. The left atrial size is normal. 8. The right atrial size is normal. 9. Trace to mild aortic regurgitation. 10. Mild mitral annular calcification present. 11. Mild mitral regurgitation is present. 12. Mild tricuspid regurgitation present. 13. There is no evidence of pulmonary hypertension. 14. The right ventricular systolic pressure, as measured by Doppler, is 12.04mmHg. 15. There is no pulmonic regurgitation present. 16. The aortic root size is normal. 17. There is no pericardial effusion. FACILITIES DIRECTOR: Francoise Laws RDCS
[2018-02-18] MEDS: LISINOPRIL 5 MG TAB PO SCH (20:00)
[2018-02-19] MEDS: PRASUGREL 10 MG TAB PO SCH (07:43)
[2018-02-19] MEDS: ASPIRIN 81 MG PO SCH (07:43)
[2018-02-19] MEDS: METOPROLOL TARTRATE 25 MG TAB PO SCH ×2 (07:43→20:31)
--- NOTE | 2018-02-19 12:16 | P.PN ---
Subjective Progress Note Date: 02/19/18 Principal diagnosis: Chest pain Patient seen and examined. No acute events overnight. Patient denies any current chest pain. As per discussion with Dr. Quinn yesterday, plans for angiogram tomorrow. Objective - Vital Signs Vital signs: Vital Signs Temp 97.8 F 02/19/18 08:00 Pulse 64 02/19/18 12:00 Resp 16 02/19/18 12:00 BP 116/73 02/19/18 08:00 Pulse Ox 97 02/19/18 08:00 Intake & Output 02/18/18 02/19/18 02/19/18 18:59 06:59 18:59 Other: Voiding Method Toilet Toilet Toilet # Voids 3 3 - Exam General: non toxic, no distress, appears at stated age Derm: warm, dry Head: atraumatic, normocephalic, symmetric Eyes: EOMI, no lid lag, anicteric sclera Mouth: no lip lesion, mucus membranes moist Cardiovascular: S1S2 reg, no murmur, positive posterior tibial pulse bilateral, non tender to palpation of chest wall Lungs: CTA bilateral, no rhonchi, no rales , no accessory muscle use Abdominal: soft, nontender to palpation, no guarding, no appreciable organomegaly Ext: no gross muscle atrophy, no edema, no contractures Neuro: CN II-XI grossly intact, no focal neuro deficits Psych: Alert, oriented, appropriate affect - Labs CBC & Chem 7: 02/17/18 18:30 02/17/18 18:30 Assessment and Plan Assessment: Assessment This is a 62-year-old male with past medical history of CAD with h/o STEMI, anxiety, hypertension, hyperlipidemia who presented to the hospital for chest pain. Review of his chart shows angioplasty in July 2017 which resulted in a stent of the RCA. Stress echo in September 2017 showed positive stress test ( suggestive of prior MT) without subjective symptoms of angina or stress-induced ischemia. Admitted for chest pain r/o ACS. Plan Active 1. Chest pain: High risk. Non tender, non pleuritic. Loaded with ASA in the ED. Recent angiogram with RCA stent in 07/2017 with + stress without induced ischemia in 09/2017. Trops < 0.012 x 3, EKG shows NSR with incomplete RBBB. Tylenol, Nitrostat PRN for pain. Telemetry monitoring. Cath on Tuesday, NPO after MN. FU Cardiology Stable 2. CAD: A1c 5.8 07/2017. Lipid panel unremarkable except low HDL 09/2017. Continue dual-antiplatelet with ASA/Prasugrel. Continue Lisinopril and Metoprolol. FU Cardiology outPT 3. HTN: BP 116/73. Continue Lisinopril and Metoprolol. Monitor vitals, adjust medications as necessary.
--- NOTE | 2018-02-19 13:29 | P.PN ---
Subjective Progress Note Date: 02/19/18 Principal diagnosis: Chest pain This is a pleasant 62-year-old gentleman seen in consultation yesterday by Dr. VC Quinn. He presented to the hospital with symptoms of chest discomfort. Patient has known history of coronary artery disease with prior stent placements, he was advised to undergo cardiac catheterization, the risks and benefits were explained to the patient in detail. The saphenous performed tomorrow by Dr. Voss. Hemodynamically the patient is stable today. Denies any chest discomfort. Objective - Vital Signs Vital signs: Vital Signs Temp 98.2 F 02/19/18 12:00 Pulse 61 02/19/18 12:00 Resp 18 02/19/18 12:00 BP 126/82 02/19/18 12:00 Pulse Ox 94 L 02/19/18 12:00 Intake & Output 02/18/18 02/19/18 02/19/18 18:59 06:59 18:59 Other: Voiding Method Toilet Toilet Toilet # Voids 3 3 - Exam PHYSICAL EXAMINATION: GENERAL: 62-year-old gentleman in no acute distress at the time of my examination HEENT: Head is atraumatic, normocephalic. Pupils equal, round. Sclera anicteric. Conjunctiva are clear. Mucous membranes of the mouth are moist. Neck is supple. There is no elevated jugular venous pressure. No carotid bruit is heard. HEART EXAMINATION: Heart S1, S2 normal. No murmur or gallop heard. CHEST EXAMINATION: Lungs are clear to auscultation and precussion. No chest wall tenderness is noted on palpation or with deep breathing. ABDOMEN: Soft, nontender. Bowel sounds are heard. No organomegaly noted. EXTREMITIES: 2+ peripheral pulses with no evidence of peripheral edema and no calf tenderness noted. NEUROLOGIC patient is awake, alert and oriented ?-3. . - Labs CBC & Chem 7: 02/17/18 18:30 02/17/18 18:30 Assessment and Plan Plan: Assessment and plan #1 chest discomfort, suggestive of possible angina. Patient is scheduled tomorrow to undergo cardiac catheterization by Dr. Voss #2 known history of coronary artery disease with prior PCI #3 hypertension 4 hyperlipidemia Plan Patient is scheduled to undergo cardiac catheterization tomorrow by Dr. Voss, the risks and benefits were explained to detail and he is willing to proceed. DNP note has been reviewed, I agree with a documented findings and plan of care. Patient was seen and examined.
[2018-02-19] MEDS: LISINOPRIL 5 MG TAB PO SCH (20:31)
[2018-02-19] MEDS: ATORVASTATIN 40 MG TAB PO SCH (21:56)
[2018-02-20] MEDS ORDERED: ASPIRIN 325 MG TAB PO STA (00:44)
[2018-02-20] MEDS ORDERED: ATORVASTATIN 80 MG TAB PO STA (00:45)
[2018-02-20] MEDS ORDERED: SODIUM CHLORIDE 0.9% 1,000 ML in EMPTY BAG 1 BAG IV ONE (06:08)
--- NOTE | 2018-02-20 07:44 | P.PN ---
Subjective Progress Note Date: 02/20/18 Principal diagnosis: Chest pain Patient was seen and examined. No acute events overnight. Patient denies any chest pain, shortness of breath, dizziness, palpitations. Patient NPO for angiogram. Objective - Vital Signs Vital signs: Vital Signs Temp 97.6 F 02/20/18 03:55 Pulse 69 02/20/18 03:55 Resp 16 02/20/18 04:00 BP 118/75 02/20/18 03:55 Pulse Ox 97 02/20/18 03:55 Intake & Output 02/19/18 02/20/18 02/20/18 18:59 06:59 18:59 Other: Voiding Method Toilet Toilet # Voids 4 2 - Exam General: non toxic, no distress, appears at stated age Derm: warm, dry Head: atraumatic, normocephalic, symmetric Eyes: EOMI, no lid lag, anicteric sclera Mouth: no lip lesion, mucus membranes moist Cardiovascular: S1S2 reg, no murmur rubs or gallops. Lungs: CTA bilateral, no rhonchi, no rales , no accessory muscle use Abdominal: soft, nontender to palpation, no guarding, no appreciable organomegaly Ext: no gross muscle atrophy, no edema, no contractures Neuro: CN II-XI grossly intact, no focal neuro deficits Psych: Alert, oriented, appropriate affect - Labs CBC & Chem 7: 02/17/18 18:30 02/17/18 18:30 Assessment and Plan Assessment: Assessment This is a 62-year-old male with past medical history of CAD with h/o STEMI, anxiety, hypertension, hyperlipidemia who presented to the hospital for chest pain. Review of his chart shows angioplasty in July 2017 which resulted in a stent of the RCA. Stress echo in September 2017 showed positive stress test ( suggestive of prior SC) without subjective symptoms of angina or stress-induced ischemia. Admitted for chest pain r/o ACS. Plan Active 1. Chest pain: Resolved. High risk. Non tender, non pleuritic. Loaded with ASA in the ED. Recent angiogram with RCA stent in 07/2017 with + stress without induced ischemia in 09/2017. Trops < 0.012 x 3, EKG shows NSR with incomplete RBBB. Tylenol, Nitrostat PRN for pain. Telemetry monitoring. Angiogram today, will FU with results. FU Cardiology Stable 2. CAD: A1c 5.8 07/2017. Lipid panel unremarkable except low HDL 09/2017. Continue dual-antiplatelet with ASA/Prasugrel. Lipitor 40 mg PO QHS. Continue Lisinopril and Metoprolol. FU Cardiology outPT 3. HTN: BP 118/75. Continue Lisinopril and Metoprolol. Monitor vitals, adjust medications as necessary. Patient to possibly be discharged after Angiogram today depending on the results. He will need good FU with his PCP Dr. Martinez and Cardiology.
[2018-02-20] MEDS: ASPIRIN 81 MG PO SCH (10:01)
[2018-02-20] MEDS: METOPROLOL TARTRATE 25 MG TAB PO SCH (10:02)
[2018-02-20 12:10] VITALS: TEMP 98.1
[2018-02-20] MEDS ORDERED: IV FLUID CONTINUATION 1,000 ML IV ONE (12:39)
[2018-02-20] MEDS ORDERED: methylPREDNISolone SOD SUCCI 125 MG/2 ML VIAL IV ONE (13:01)
[2018-02-20] MEDS ORDERED: fentaNYL (PF) 50 MCG/ML 2 ML AMP IV ONE (13:01)
[2018-02-20] MEDS ORDERED: LIDOCAINE 1% INJ 10MG/ML (20 ML MDV) SQ ONE (13:02)
[2018-02-20] MEDS ORDERED: VERAPAMIL SYRINGE (5 MG/10 ML) INTRAARTER ONE (13:05)
[2018-02-20] MEDS ORDERED: HEPARIN SODIUM 1,000 UN/ML (10ML VL) IV ONE (13:16)
[2018-02-20] MEDS ORDERED: IOPAMIDOL-370 125ML BTL INJ ONE (13:16)
[2018-02-20] MEDS ORDERED: RX INFO: IV CONTRAST WAS GIVEN 1 EACH MISC MISCELLANE PRN (13:26)
[2018-02-20] MEDS ORDERED: SODIUM CHLORIDE 0.9% 1,000 ML IV SCH (13:30)
[2018-02-20 13:44] VITALS: RESP 18
[2018-02-20] MEDS: PRASUGREL 10 MG TAB PO SCH (14:22)
--- NOTE | 2018-02-20 15:00 | CC ---
CARDIAC CATHETERIZATION REPORT Mr. Andujar is a 62-year-old male with a history of coronary artery disease status post inferior myocardial infarction, stenting of the right coronary artery earlier this year as well as stenting of the LAD and the left circumflex, who presented with symptoms of chest discomfort. His cardiac enzymes and EKG were unremarkable. He was evaluated by Dr. Nereida Quinn and because of his presentation recommendation made regarding cardiac catheterization. The procedure as well as risks and complications were discussed with the patient who is in full understanding and agreement. DESCRIPTION OF PROCEDURE: Patient was brought to the laboratory tech in a fasting semi-sedated state after receiving fentanyl and Benadryl and achieving moderate conscious sedated state. Using Xylocaine anesthesia and Seldinger technique, a 6-Kenyan sheath was introduced in the right radial artery. Selective right and left coronary angiography performed using 5-Kenyan 3 and half bend right and left Edgardo catheter. Multiple views of the coronary artery including hemiaxial views were obtained. Following that, 5-Kenyan tight pigtail catheter was introduced in the left ventricle and a 30 degree WEEMS view of the left ventricle was obtained. Following that, the catheter and sheaths were removed. Hemostasis was obtained with deployment of a TR band. There was no immediate complications. Patient is returned to his room in stable condition. Of note, the patient received 4000 units of intravenous heparin as well as intra-arterial verapamil. FINDINGS: LEFT MAIN: This is a large-sized vessel bifurcating into left circumflex, left anterior descending artery, left main coronary artery has no evidence of high-grade stenosis. LEFT ANTERIOR DESCENDING ARTERY: This is a large-sized vessel reaching towards the apex with a wraparound the apex segment. The stented segment in the proximal LAD has 10 to 20% plaque. There is a diagonal branch that is small in caliber and has a 60-70% plaque. The rest of the vessel has no high-grade stenosis. LEFT CIRCUMFLEX: This is a nondominant vessel giving rise to one obtuse marginal branch. The stented segment proximally has no evidence of restenoses with a minimal intimal disease. RIGHT CORONARY ARTERY: This is a dominant vessel, large in caliber, bifurcating distally into PDA and posterolateral segment and branches. The stented segment in the mid area is patent. The proximal right coronary artery is tortuous and has intimal plaque of about 30% to 40% without any evidence of high-grade stenosis. LEFT VENTRICULOGRAM: Left ventriculogram was performed in 30 degree WEEMS view and revealed a normal left ventricular size with mid inferior wall hypokinesis. Ejection fraction of 50%. There was no significant mitral regurgitation. HEMODYNAMICS: There was no gradient across the aortic valve. The left ventricular end-diastolic pressure was 18 mmHg. CONCLUSION: 1. Mild to moderate triple-vessel coronary artery disease. 2. Mildly impaired left ventricular systolic function. RECOMMENDATION: In view of findings and anatomy, I have recommend continued medical therapy with aggressive coronary risk factor modifications that have been initiated. Those findings and recommendations were discussed with the patient and his family and they are in full understanding and agreement. Duration of procedure: 19 minutes. MMODL / IJN: [id number] /
[2018-02-20 15:22] VITALS: BP 105/63; PULSE 87
== END 2018-02-20 18:54 | disposition home or self-care (01) ==
LOC: EC 18:01 → 3OBS 20:26 → OBSVTOIN 02-19 13:37 → INTOOBSV 02-19 13:37 → UNDODISIN 02-20 18:54
PROVIDERS: ADMIT Family Medicine; ATTEND Family Medicine
PROC: B2111ZZ Fluoroscopy of Multiple Coronary Arteries using Low Osmolar Contrast (ICD-10-PCS; 2018-02-20)
PROC: B2151ZZ Fluoroscopy of Left Heart using Low Osmolar Contrast (ICD-10-PCS; 2018-02-20)
PROC: 4A023N7 Measurement of Cardiac Sampling and Pressure, Left Heart, Percutaneous Approach (ICD-10-PCS; principal; 2018-02-20 12:20)
DX: R07.89 Other chest pain (principal); I25.10 Atherosclerotic heart disease of native coronary artery without angina pectoris; I10 Essential (primary) hypertension; R20.0 Anesthesia of skin; R20.2 Paresthesia of skin; F41.9 Anxiety disorder, unspecified; E78.5 Hyperlipidemia, unspecified; I45.10 Unspecified right bundle-branch block; Z79.82 Long term (current) use of aspirin; Z79.02 Long term (current) use of antithrombotics/antiplatelets; Z79.899 Other long term (current) drug therapy; Z91.041 Radiographic dye allergy status; I25.2 Old myocardial infarction; Z95.5 Presence of coronary angioplasty implant and graft; Z82.3 Family history of stroke
CPT/HCPCS: 93005 ×2; 99285; 36415; 93306; 93458; 83880; 80053; 82550 ×2; 82553 ×2; 83690; 83735; 84484 ×2; 85025; 85610; 85730; 71046; G0378 ×5; C1894; C1769; J2930; J2001; J3010; J1644; Q9967